=== PATIENT | female | born 1980 | race Caucasian/White ===

== ENCOUNTER 2021-02-01 08:59 | Outpatient (REF) | payer OTHER, SELFPAY ==
--- NOTE | ~2021-02-01 | FL_ITS ---
EXAMINATION: XR GI SERIES CLINICAL INFORMATION: Gastroesophageal reflux disease without esophagitis. COMPARISON: None TECHNIQUE: Routine upper GI air-contrast study was performed in upright and lying position. FINDINGS: Following oral administration of thick barium and effervescent granules upright view there is normal propagation bolus from the oral cavity through the pharynx, esophagus into stomach without any evidence of obstruction, narrowing or stricture. On placing patient supine and prone lying there is mild gastroesophageal reflux with a small sliding hiatal hernia. The course, caliber and peristalsis of the stomach, duodenal bulb and the sweep is normal. The mucosal pattern of esophagus, stomach and the duodenum is normal. FLUOROSCOPY TIME: 1.5 minutes DOSE AREA PRODUCT: 18.391 uGy-m2 (microgray-meter squared) FL/FL upper GI series IMPRESSION: Mild gastroesophageal reflux with a small sliding hiatal hernia.
== END 2021-02-01 09:00 | disposition home or self-care (01) ==
LOC: HO.XRAY 08:59
PROVIDERS: PCP Internal Medicine Nephrology; Visit Provider Internal Medicine
DX: K21.9 Gastro-esophageal reflux disease without esophagitis (principal)
CPT/HCPCS: 74240

== ENCOUNTER → 2021-04-12 15:22 | Outpatient (BNVA) | payer OTHER, SELFPAY | PROVIDERS: PCP Internal Medicine; Visit Provider Surgery Vascular Surgery ==

== ENCOUNTER 2021-05-25 10:11 | Outpatient (REF) | payer OTHER, SELFPAY ==
--- NOTE | ~2021-05-25 | US_ITS ---
EXAMINATION: US LOWER EXTREMITY VENOUS ULTRASOUND (REFLUX EXAM), BILATERAL CLINICAL INDICATION: Lower extremity varicose veins. COMPARISON: Bilateral lower extremity venous Doppler ultrasound on 02/12/2019. TECHNIQUE: Color-flow triplex imaging and compression Doppler was performed to evaluate both the deep and the superficial systems bilaterally. To evaluate the superficial system, the examination was performed in the upright position. Color-flow Doppler ultrasound and compression ultrasound were utilized. In addition, maneuvers were utilized to demonstrate reflux. FINDINGS: - SUPERFICIAL ULTRASOUND WITH DOPPLER OF RIGHT LOWER EXTREMITY GREAT SAPHENOUS VEIN: Saphenofemoral junction: 0.4 cm; Reflux: No evidence of reflux. Max diameter: 0.5 Min diameter: 0.2 Reflux: Segmental reflux at the mid calf up to 3 seconds. DUPLICATED MEDIAL GREAT SAPHENOUS VEIN: Max Diameter: 0.2 cm at the junction. Reflux: 0.4 seconds at the mid thigh. DUPLICATED LATERAL GREAT SAPHENOUS VEIN: Diameter: None imaged. Reflux: NA. SMALL SAPHENOUS VEIN: Proximal Calf: 0.4 cm Reflux: No evidence of reflux. VEIN OF GIACOMINI: None imaged. PERFORATORS: Location: Proximal calf and midcalf. Reflux: NA. VARICOSITIES: Location: None imaged. Reflux: NA. - DEEP VENOUS ULTRASOUND OF THE RIGHT LOWER EXTREMITY: Common Femoral Vein: Compressible, normal respiratory variation and augmented flow. Femoral Vein: Compressible, normal color-flow and augmentation. Popliteal Vein: Compressible, normal augmentation. Deep Reflux: There is no evidence of reflux in the deep system in either the common femoral vein or the popliteal vein. Lozada's Cyst: There is no evidence of a Lozada's cyst. - SUPERFICIAL ULTRASOUND WITH DOPPLER OF LEFT LOWER EXTREMITY GREAT SAPHENOUS VEIN: Saphenofemoral junction: 0.5 cm; Reflux: No evidence of reflux. Max diameter: 0.5 Min diameter: 0.1 Reflux: There is greater than 3 seconds of reflux at the proximal thigh and midcalf. DUPLICATED MEDIAL GREAT SAPHENOUS VEIN: Max Diameter: None imaged. Reflux: NA. DUPLICATED LATERAL GREAT SAPHENOUS VEIN: Diameter: 0.2 cm Reflux: None. SMALL SAPHENOUS VEIN: Proximal Calf: 0.3 cm Reflux: No evidence of reflux. VEIN OF GIACOMINI: None imaged. PERFORATORS: Location: None imaged. Reflux: NA. VARICOSITIES: Location: None imaged. Reflux: NA. - DEEP VENOUS ULTRASOUND OF THE LEFT LOWER EXTREMITY: Common Femoral Vein: Compressible, normal respiratory variation and augmented flow. Femoral Vein: Compressible, normal color-flow and augmentation. Popliteal Vein: Compressible, normal augmentation. Deep Reflux: There is no evidence of reflux in the deep system in either the common femoral vein or the popliteal vein. Lozada's Cyst: There is no evidence of a Lozada's cyst. US/US venous duplex LE BI IMPRESSION: 1. Segmental right great saphenous venous insufficiency at the mid calf. 2. Segmental left great saphenous venous insufficiency at the proximal thigh and midcalf. 3. No imaged varicosities. 4. No DVT or deep venous insufficiency.
== END 2021-05-25 10:12 | disposition home or self-care (01) ==
LOC: HO.US 10:11
PROVIDERS: PCP Internal Medicine; Visit Provider Surgery Vascular Surgery
DX: I83.11 Varicose veins of right lower extremity with inflammation (principal)
CPT/HCPCS: 93970

== ENCOUNTER → 2021-06-02 09:18 | Outpatient (BNVA) | payer OTHER, SELFPAY | PROVIDERS: PCP Internal Medicine; Visit Provider Surgery Vascular Surgery ==

== ENCOUNTER 2021-09-01 16:34 | Outpatient (REF) | payer OTHER, SELFPAY ==
[2021-09-01 17:04] LABS: Hematocrit 39.8 % (37.0-47.0); Hemoglobin 13.6 g/dl (12.0-16.0); Mean Corpuscular HGB Conc 34.2 g/dl (31.0-35.0); Mean Corpuscular Hemoglobin 33.7 pg (27.0-33.0); Mean Corpuscular Volume 98.8 fL (80.0-98.0); Mean Platelet Volume 10.7 fL (9.4-12.3); Platelet Count 248 X10*3/uL (160-400); Red Blood Count 4.03 X10*6/uL (4.20-5.50); Red Cell Distribution Width 12.5 % (11.0-16.0); White Blood Count 10.5 X10*3/uL (4.8-10.8)
[2021-09-01 17:22] LABS: Alanine Aminotransferase 13 U/L (0-31); Albumin Level 4.5 g/dL (3.5-5.0); Alkaline Phosphatase 50 U/L (39-117); Anion Gap 14 (12-20); Aspartate Amino Transferase 18 U/L (5-31); Bilirubin Total 0.3 mg/dL (0.0-1.0); Blood Urea Nitrogen 16 mg/dL (9-16); Carbon Dioxide 28 mmol/L (22-29); Chloride 102 mmol/L (96-108); Estimated Glomerular Filt Rate > 60; Glucose Random 125 mg/dL (60-115); Potassium 4.3 mmol/L (3.3-5.1); Sodium 140 mmol/L (135-145); Total Protein 7.2 g/dL (6.5-8.0)
[2021-09-01 17:44] LABS: TSH reflex Free T4 1.48 uIU/mL (0.32-4.0); Vitamin D 25-OH Total 38.4 ng/mL (>30)
[2021-09-01 17:55] LABS: Folate 18.4 ng/mL (> or = 4.0); Vitamin B12 373 pg/mL (200-900)
== END 2021-09-01 16:35 | disposition home or self-care (01) ==
LOC: HO.LAB 16:34
PROVIDERS: PCP Internal Medicine; Visit Provider Nurse Practitioner Family
DX: F41.9 Anxiety disorder, unspecified (principal)
CPT/HCPCS: 36415; 80053; 82306; 82607; 82746; 84443; 85027

== ENCOUNTER → 2021-09-02 08:48 | Outpatient (REF) | payer OTHER, SELFPAY ==
--- NOTE | 2021-09-02 08:55 | ECG_ITS ---
Test Reason : PALPITATIONS Blood Pressure : / mmHG Vent. Rate : 067 BPM Atrial Rate : 067 BPM P-R Int : 126 ms QRS Dur : 088 ms QT Int : 404 ms P-R-T Axes : 051 -09 043 degrees QTc Int : 426 ms Normal sinus rhythm with sinus arrhythmia Normal ECG When compared with ECG of 21-APR-2009 19:13, No significant change was found Referred By: Mitzi Bui Electronically Signed By:ALEXANDRA DURAN
== END ==
LOC: HO.CARD 08:48
PROVIDERS: PCP Internal Medicine; Visit Provider Nurse Practitioner Family
DX: R00.2 Palpitations (principal)
CPT/HCPCS: 93005

== ENCOUNTER 2022-02-01 06:59 | Outpatient (REF) | payer OTHER, SELFPAY ==
[2022-02-01 07:18] LABS: MANUAL DIFF FLAG NO
[2022-02-01 07:32] LABS: Basophils Absolute Auto 0.1 X10*3/uL (0.0-0.2); Eosinophils Absolute Auto 0.1 X10*3/uL (0.0-0.4); Hematocrit 39.9 % (37.0-47.0); Hemoglobin 14.1 g/dl (12.0-16.0); Imm Gran Abs Auto 0.02 X10*3/uL (0.00-0.03); Imm Gran Pct Auto 0.3 % (0.0-0.4); Lymphocytes Absolute Auto 1.5 X10*3/uL (1.2-4.9); Lymphocytes Percent Auto 25.2 % (20-40); Mean Corpuscular HGB Conc 35.3 g/dl (31.0-35.0); Mean Corpuscular Hemoglobin 34.5 pg (27.0-33.0); Mean Corpuscular Volume 97.6 fL (80.0-98.0); Mean Platelet Volume 10.3 fL (9.4-12.3); Monocytes Absolute Auto 0.6 X10*3/uL (0.1-1.2); Monocytes Percent Auto 9.6 % (2-11); Neutrophils Absolute Auto 3.7 x10*3/uL (2.0-8.3); Neutrophils Percent Auto 61.9 % (45-73); Platelet Count 230 X10*3/uL (160-400); Red Blood Count 4.09 X10*6/uL (4.20-5.50); Red Cell Distribution Width 12.5 % (11.0-16.0)
[2022-02-01 07:39] LABS: Estimated Average Glucose 97 mg/dL
[2022-02-01 08:00] LABS: Alanine Aminotransferase 10 U/L (0-31); Albumin Level 4.2 g/dL (3.5-5.0); Alkaline Phosphatase 40 U/L (39-117); Anion Gap 13 (12-20); Aspartate Amino Transferase 17 U/L (5-31); Bilirubin Total 0.8 mg/dL (0.0-1.0); Blood Urea Nitrogen 14 mg/dL (9-16); Calcium 9.1 mg/dL (8.4-10.2); Carbon Dioxide 29 mmol/L (22-29); Chloride 104 mmol/L (96-108); Cholesterol 141 mg/dL; Estimated Glomerular Filt Rate > 60; Glucose Random 96 mg/dL (60-115); HDL Cholesterol 55 mg/dL; LDL Cholesterol Calculated 78 mg/dl; Potassium 4.5 mmol/L (3.3-5.1); Sodium 141 mmol/L (135-145); Total Protein 6.7 g/dL (6.5-8.0); Triglycerides 42 mg/dL
[2022-02-01 08:20] LABS: Free T4 (Free Thyroxine) 1.05 ng/dL (0.71-1.85); Thyroid Stimulating Hormone 1.85 uIU/mL (0.32-4.0)
[2022-02-01 08:27] LABS: Folate > 20.0 ng/mL (> or = 4.0); Vitamin B12 402 pg/mL (200-900)
== END 2022-02-01 07:00 | disposition home or self-care (01) ==
LOC: HO.LAB 06:59
PROVIDERS: PCP Internal Medicine; Visit Provider Internal Medicine
DX: K21.9 Gastro-esophageal reflux disease without esophagitis (principal); E78.00 Pure hypercholesterolemia, unspecified; R73.09 Other abnormal glucose
CPT/HCPCS: 36415; 80053; 80061; 82306; 82607; 82746; 83036; 84439; 84443; 85025

== ENCOUNTER 2022-07-12 12:30 | Outpatient (REF) | payer OTHER, SELFPAY ==
[2022-07-12 13:42] LABS: Blood Urea Nitrogen 18 mg/dL (9-16); Estimated Glomerular Filt Rate > 60
== END 2022-07-12 12:31 | disposition home or self-care (01) ==
LOC: HO.LAB 12:30
PROVIDERS: PCP Internal Medicine; Visit Provider Internal Medicine
DX: Z82.49 Family history of ischemic heart disease and other diseases of the circulatory system (principal)
CPT/HCPCS: 36415; 82565; 84520

== ENCOUNTER 2022-07-18 08:54 | Outpatient (REF) | payer OTHER, SELFPAY ==
--- NOTE | ~2022-07-18 | CT_ITS ---
EXAMINATION: CT ANGIOGRAM BRAIN WITH CONTRAST CLINICAL INFORMATION: Family history of ischemic heart disease COMPARISON: None. TECHNIQUE: Test bolus sequences followed by intravenous administration 75 mL of Omnipaque 350. Helical imaging was performed in the axial plane from the skull base to the skull vertex. Delayed postcontrast imaging of the head was also performed. The data was processed at the senior nuclear medicine technologist workstation for generation of MIP sequences. Angled MIPs and volume rendered reformatted images were also generated at an offline 3D workstation. This CT examination was performed using dose optimization techniques as appropriate, variously including the following: *Automated exposure control *Adjustment of mA and/or kV according to patient size (this includes techniques or standardized protocols for targeted exams where dose is matched to indication/reason for exam; i.e. extremities or head) *Use of iterative reconstruction technique DLP: 2035 mGy-cm FINDINGS: Head CT: There is no intracranial hemorrhage, extra-axial collection, mass effect, or territorial infarction. The ventricles are normal in size without hydrocephalus. No abnormal enhancement is seen. The dural venous sinuses are normally opacified. The extracranial structures are within normal limits. Head CTA: The cervical internal carotid arteries and intracranial segments appear normal. The ACAs and MCAs appear normal with symmetric collaterals. The intradural vertebral arteries and basilar artery are patent. 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 Both kettle loader are patent. No aneurysm is seen. CT/CT angio head IMPRESSION: No acute intracranial abnormality. Normal appearance of the major intracranial arteries without stenosis or aneurysm.
[2022-07-18] MEDS: iohexoL 350 MG/ML 100 ML INFUS..BTL IV (10:10)
== END 2022-07-18 08:55 | disposition home or self-care (01) ==
LOC: HO.CT 08:54
PROVIDERS: PCP Internal Medicine; Visit Provider Internal Medicine
DX: Z82.49 Family history of ischemic heart disease and other diseases of the circulatory system (principal)
CPT/HCPCS: 70496; Q9967

== ENCOUNTER 2023-02-10 07:08 | Outpatient (REF) | payer OTHER, SELFPAY ==
[2023-02-10 07:41] LABS: MANUAL DIFF FLAG NO
[2023-02-10 08:06] LABS: Basophils Percent Auto 0.6 % (0-2); Eosinophils Absolute Auto 0.2 X10*3/uL (0.0-0.4); Eosinophils Percent Auto 3.6 % (0-4); Hematocrit 39.4 % (37.0-47.0); Hemoglobin 13.7 g/dl (12.0-16.0); Imm Gran Abs Auto 0.02 X10*3/uL (0.00-0.03); Imm Gran Pct Auto 0.3 % (0.0-0.4); Lymphocytes Absolute Auto 1.5 X10*3/uL (1.2-4.9); Lymphocytes Percent Auto 24.8 % (20-40); Mean Corpuscular HGB Conc 34.8 g/dl (31.0-35.0); Mean Corpuscular Volume 94.9 fL (80.0-98.0); Mean Platelet Volume 10.2 fL (9.4-12.3); Monocytes Absolute Auto 0.6 X10*3/uL (0.1-1.2); Monocytes Percent Auto 9.6 % (2-11); Neutrophils Absolute Auto 3.8 x10*3/uL (2.0-8.3); Neutrophils Percent Auto 61.1 % (45-73); Platelet Count 250 X10*3/uL (160-400); Red Blood Count 4.15 X10*6/uL (4.20-5.50); Red Cell Distribution Width 12.3 % (11.0-16.0); White Blood Count 6.2 X10*3/uL (4.8-10.8)
[2023-02-10 08:22] LABS: Estimated Average Glucose 91 mg/dL; Hemoglobin A1c % 4.8 % (<6.0)
[2023-02-10 08:51] LABS: Alanine Aminotransferase 9 U/L (0-31); Albumin Level 4.1 g/dL (3.5-5.0); Alkaline Phosphatase 39 U/L (39-117); Anion Gap 12 (12-20); Aspartate Amino Transferase 19 U/L (5-31); Bilirubin Total 0.7 mg/dL (0.0-1.0); Blood Urea Nitrogen 18 mg/dL (9-16); Carbon Dioxide 24 mmol/L (22-29); Chloride 108 mmol/L (96-108); Cholesterol 149 mg/dL (<200); Estimated Glomerular Filt Rate > 60; Glucose Random 76 mg/dL (60-115); HDL Cholesterol 57 mg/dL (>40); LDL Cholesterol Calculated 84 mg/dL (<100); Potassium 3.9 mmol/L (3.3-5.1); Sodium 140 mmol/L (135-145); Total Protein 6.9 g/dL (6.5-8.0); Triglycerides 40 mg/dL (<150)
[2023-02-10 09:14] LABS: Free T4 (Free Thyroxine) 0.85 ng/dL (0.71-1.85); Thyroid Stimulating Hormone 1.84 uIU/mL (0.32-4.0); Vitamin D 25-OH Total 68.5 ng/mL (>30)
[2023-02-10 09:19] LABS: Folate 16.9 ng/mL (> or = 4.0); Vitamin B12 466 pg/mL (200-900)
== END 2023-02-10 07:09 | disposition home or self-care (01) ==
LOC: HO.LAB 07:08
PROVIDERS: PCP Internal Medicine; Visit Provider Internal Medicine
DX: K21.9 Gastro-esophageal reflux disease without esophagitis (principal); E78.00 Pure hypercholesterolemia, unspecified; R73.9 Hyperglycemia, unspecified; E55.9 Vitamin D deficiency, unspecified
CPT/HCPCS: 36415; 80053; 80061; 82306; 82607; 82746; 83036; 84439; 84443; 85025

== ENCOUNTER 2023-02-15 16:07 | Outpatient (AMB) | payer OTHER, SELFPAY ==
[2023-02-15 16:10] VITALS: BP 118/74; PULSE 67; O2SAT 99; BMI 23.8
--- NOTE | 2023-02-15 16:10 | MHC.PC.OV ---
Vital Signs 02/15/23 16:10 Height 5 ft 6 in Weight 147 lb 8 oz BMI 23.8 BP 118/74 Blood Pressure Location Lt brachial Position Sitting Pulse 67 Pulse Source Pulse Oximeter Pulse Oximetry (%) 99 Oxygen Delivery Method Room Air Intake Visit Reasons: PHYSICAL Allergies amoxicillin Allergy (Unknown, Verified 02/15/23 16:11) unknown codeine Allergy (Unknown, Verified 02/15/23 16:11) codeine sulfate- unknown penicillin V Allergy (Unknown, Verified 02/15/23 16:11) unknown Medication List - Last Reconciled 02/15/23 by Percy Ramirez MD flaxseed oil 1,000 mg PO DAILY ibuprofen 600 mg PO Q8H PRN lactobacillus combination no.4 (Probiotic) 3,000 mmu cells PO DAILY loratadine (Claritin) 10 mg PO DAILY xhheguerhrqc-smdx-vpmpf acid 18-400 mg-mcg (Centrum Women) 1 tab PO DAILY mv-min-vit K-crcvctya-kvzs 124 1,000 mg-50 mg-35.5 mg (Airborne Elderberry) ea PO triamcinolone acetonide 0.1% 1 appl topical BID-TID Tobacco use date assessed: 02/15/23 Dental Screening Dental Screen Date: 02/15/23 Did you have a dental visit in the last 12 months?: Yes Did you have a dental problem in the last 6 months where you did not have access to dental care?: No Was dental information given to patient?: Patient has dentist HPI PHYSICAL HPI Details 42-year-old female with GERD and generalized anxiety disorder last seen in January 2022 coming in for physical exam review of the notes in October 2022 had shoulder pain on the left diagnosis of cervical radiculopathy x-ray requested advise heating pads and meloxicam. With a history of cerebral aneurysms in the family CT scan was done revealing negative results this was July 2022 [facility] Medical History (Updated 02/15/23 @ 16:48 by Percy Ramirez MD) Annual physical exam Asthma Back pain Change in stool habits Elevated glucose Family history of cerebral aneurysm Gastroenteritis GERD (gastroesophageal reflux disease) Macrocytosis without anemia Peripheral vascular disease Ulnar neuropathy Surgical History H/O LEEP History of appendectomy [place] teeth extracted Family History (Updated 02/15/23 @ 16:51 by Percy Ramirez MD) Father Skin cancer Alcoholic Mother CAD (coronary artery disease) Maternal Grandmother CAD (coronary artery disease) Paternal Grandfather Colon cancer Brother Depression Substance abuse Maternal Grandfather CAD (coronary artery disease) Social History (Updated 02/15/23 @ 16:52 by Percy Ramirez MD) Housing: House Alcohol intake: current Patient Tobacco Use Status: Never used Tobacco e-Cigarette/Vaping Use: Never Used Second Hand Smoke Exposure: No Current occupational status: unemployed Cognitive needs: No Hearing needs: No Vision needs: Yes Questionnaire PHQ-9 Over the last 2 weeks, how often have you been bothered by any of the following problems? 1. Little interest or pleasure in doing things: not at all 2. Feeling down, depressed, or hopeless: not at all 3. Trouble falling or staying asleep, or sleeping too much: not at all 4. Feeling tired or having little energy: not at all 5. Poor appetite or overeating: not at all 6. Feeling bad about yourself - or that you are a failure or have let yourself or your family down: not at all 7. Trouble concentrating on things, such as reading the newspaper or watching television: not at all 8. Moving or speaking so slowly that other people could have noticed. Or the opposite - being so fidgety or restless that you have been moving around a lot more than usual: not at all 9. Thoughts that you would be better off or of hurting yourself in some way: not at all Total score: 0 Depression Screening Interpretation: Negative Source: Developed by Drs. Orion Manriquez, Mary Infante, Nirmal Aguilar and colleagues, with an educational stacia from [employer]. Thrive Questionnaire Date Thrive assessed: 02/15/23 I am a: Patient What is your living situation today?: I have a steady place to live Within the past 12 months, did the food you bought not last and you didn't have the money to get more?: Never true Within the past 12 months, did you worry whether your food would run out before you got money to buy more?: Never true Do you have trouble paying for medicines?: No Do you have trouble getting transportation to medical appointments?: No Do you have trouble paying your heating and electricity bill?: No Do you have trouble taking care of your child, family member or friend?: No Do you have trouble with day-to-day activities such as bathing, preparing meals, shopping, managing finances, etc.?: No Are you currently unemployed and looking for a job?: No Are you interested in more education?: No Please select the resources that you would like help with: None AUDIT C Alcohol Use Questionnaire (AUDIT-C) 1. How often do you have a drink containing alcohol?: 2-3 times a week 2. How many drinks containing alcohol do you have on a typical day when you are drinking?: 1 or 2 3. How often do you have six or more drinks on one occasion?: Never Total Score: 3 Score Reviewed/Action Taken: Yes GERARDO-7 AMB Questionnaire GERARDO-7 Date GERARDO - 7 assessed: 02/15/23 Feeling nervous, anxious, or on edge: 0 = Not at all Not being able to stop or control worryin = Not at all Worrying too much about different things: 0 = Not at all Trouble relaxin = Not at all Being so restless that it is hard to sit still: 0 = Not at all Becoming easily annoyed or irritable: 0 = Not at all Feeling afraid as if something awful might happen: 0 = Not at all Total GERARDO-7 score (0-4 normal; 5-9 mild; 10-14 moderate; 15-21 severe): 0 Source: Developed by Drs. Orion Manriquez, Mary Infante, Nirmal Aguilar and colleagues, with an educational stacia from [employer]. Review of Systems Const Denies poor appetite and Denies weakness Eyes Denies no additional complaints ENT Reports Normal hearing present, Denies dizziness, Denies nasal congestion, Denies tinnitus and Denies sore throat Card Denies chest pain, Denies syncope, Denies rapid heart rate and Denies dyspnea Resp Denies cough and Denies dyspnea GI Denies change in stool character, Reports constipation, Denies diarrhea, Denies nausea and Denies vomiting Denies urinary frequency, Denies difficulty voiding and Denies dysuria Neuro Reports Normal hearing present, Denies confusion, Denies dizziness, Denies syncope and Denies weakness Psych Denies confusion Physical exam (Primary Care) Vital Signs: Last Vital Signs Pulse 67 08/31/23 16:10 BP 118/74 02/15/23 16:10 Pulse Ox 99 02/15/23 16:10 Oxygen Delivery Method Room Air 02/15/23 16:10 BMI result Body Mass Index 23.8 Tobacco/Smoking Status: Tobacco use Status Tobacco use date assessed 02/15/23 02/15/23 16:17 Patient Tobacco Use Status Never used Tobacco 02/15/23 16:17 e-Cigarette/Vaping Use Never Used 02/15/23 16:17 PHQ-9: PHQ-9 Score PHQ-9: Total score 0 02/15/23 16:17 Depression Screening Interpretation: Negative Thrive Assessment: Date of Thrive Assessment Date Thrive assessed 02/15/23 02/15/23 16:17 Const General: No confusion Orientation/consciousness: No confusion HENMT Head: Yes normocephalic Ears: external ears normal and TM's normal bilaterally Face and sinus: Yes normal facial exam Mouth: moist mucous membranes Throat: Yes tonsils normal Eyes Conjunctivae: conjunctivae normal Pupils: Equal, round and reactive pupils present and Pupil accommodation reflex normal Direct Ophthalmoscopy: normal light reflex Neck Neck: No lymphadenopathy Thyroid: Thyroid normal Chest Chest palpation & inspection: normal inspection of the chest Resp Effort & Inspection: normal respiratory effort and no audible wheezes Auscultation: clear to auscultation bilaterally, no crackles, no wheezes and lung sounds not diminished Cardio Rate: regular rate Rhythm: regular rhythm Peripheral pulses: radial pulses present and dorsalis pedis present GI Palpation (GI): no masses Auscultation: normal bowel sounds and normoactive bowel sounds Rectal Exam - Female: deferred Skin General skin exam: no rashes or lesions noted Rashes: no rashes Neuro General: No confusion Cranial nerves: Yes Equal, round and reactive pupils present and Yes Normal hearing present Cognition (Neuro): normal cognition Gait exam (Neuro): Normal gait present Motor exam (neuro): 5/5 motor strength present throughout Deep tendon reflexes (DTR's): Right brachioradialis reflex intensity grade: 2+, Left brachioradialis reflex intensity grade: 2+, Right patellar reflex intensity grade: 2+ and Left patellar reflex intensity grade: 2+ Extrem General: No edema Assessment and Plan Assessment & Plan (1) Annual physical exam: Code(s): Z00.00 - Encounter for general adult medical examination without abnormal findings (2) Shoulder pain, left: Code(s): M25.512 - Pain in left shoulder Plan: resolved (3) GERD (gastroesophageal reflux disease): Code(s): K21.9 - Gastro-esophageal reflux disease without esophagitis Plan: Avoid the foods that causes that usually spicy foods, tomato products, juices, coffee, soda and foods that your sensitive to. After eating do not lie down, allow 3-4 hours before in lie down. And keep the head of bed above 30 degrees to avoid the acid from going up. Coding Level of Care Code Est Pt Prev Care 40-64y(62476) Diagnoses Annual physical exam Z00.00 Shoulder pain, left M25.512 GERD (gastroesophageal reflux disease) K21.9 Additional Codes PHQ-9 - 84646 - PHQ-9 Billing: Y ([id number])
== END 2023-02-15 17:07 | disposition home or self-care (01) ==
PROVIDERS: PCP Internal Medicine; Visit Provider Internal Medicine
DX: Z00.00 Encounter for general adult medical examination without abnormal findings (principal); M25.512 Pain in left shoulder; K21.9 Gastro-esophageal reflux disease without esophagitis
CPT/HCPCS: 99396

== ENCOUNTER 2023-08-28 11:18 | Outpatient (AMB) | payer OTHER, SELFPAY ==
[2023-08-28 11:24] VITALS: BP 123/83; PULSE 69; BMI 22.1
--- NOTE | 2023-08-28 11:24 | A.OFFVIS_ITS ---
Intake Vital Signs 08/28/23 11:24 Height 5 ft 6 in Weight 136 lb 10.986 oz BMI 22.1 BP 123/83 Blood Pressure Location Lt brachial Position Sitting Pulse 69 Intake Visit Reasons: Gastroesophageal reflux disease (GERD) Intake Note: Rhonda presents in the office as a new patient for GERD. CC: She states that she is having excessive burping. She states she has constipation, bloating, not so much diarrhea. Barge Master Required: No Allergies amoxicillin Allergy (Unknown, Verified 08/28/23 11:24) unknown codeine Allergy (Unknown, Verified 08/28/23 11:24) codeine sulfate- unknown penicillin V Allergy (Unknown, Verified 08/28/23 11:24) unknown Medication List - Last Reconciled 08/28/23 by Dinorah Johnston PA-C flaxseed oil 1,000 mg PO DAILY ibuprofen 600 mg PO Q8H PRN lactobacillus combination no.4 (Probiotic) 3,000 mmu cells PO DAILY loratadine (Claritin) 10 mg PO DAILY sojcxexnkumz-cjvu-ewzeg acid 18-400 mg-mcg (Centrum Women) 1 tab PO DAILY mv-min-vit I-zvssoczd-kiis 124 1,000 mg-50 mg-35.5 mg (Airborne Elderberry) ea PO tizanidine 2 mg PO Q8H PRN HPI HPI Comments History of Present Illness Details A 43 y/o female with dyspepsia- increase past 3 months Began Omeprazole not helpful, she discontinued, has not been taking any medications. Does complain of bloating-she eats healthy occ constipation No smoke , occ drink- active - No N/V/D-abdominal pain, hematemesis, hematochezia fever or chills Upper GI series 2020 reveals hiatal hernia acid reflux PFSH Medical History (Updated 08/28/23 @ 14:15 by Dinorah Johnston PA-C) Family history of cerebral aneurysm Annual physical exam Elevated glucose Back pain Gastroenteritis Macrocytosis without anemia Asthma Peripheral vascular disease GERD (gastroesophageal reflux disease) Ulnar neuropathy Change in stool habits Surgical History [place] teeth extracted History of appendectomy H/O LEEP Family History (Updated 08/28/23 @ 14:12 by Dinorah Johnston PA-C) Father Skin cancer Alcoholic Mother CAD (coronary artery disease) Maternal Grandmother CAD (coronary artery disease) Paternal Grandfather Colon cancer Bladder cancer Brother Depression Substance abuse Maternal Grandfather CAD (coronary artery disease) Brother Brain aneurysm Social History Housing: House Alcohol intake: current Patient Tobacco Use Status: Never used Tobacco e-Cigarette/Vaping Use: Never Used Second Hand Smoke Exposure: No Current occupational status: unemployed Cognitive needs: No Hearing needs: No Vision needs: Yes Review of Systems Const All systems reviewed & are unremarkable except as noted in HPI and below Card Denies chest pain and Denies dyspnea Resp Denies dyspnea GI Reports belching, Reports constipation and Reports dyspepsia Physical Exam Vital Signs: Last Vital Signs Pulse 69 08/28/23 11:24 BP 123/83 08/28/23 11:24 BMI result Body Mass Index 22.1 Const General: cooperative, healthy appearing and comfortable Orientation/consciousness: patient oriented x3 Limitations: no limitations Eyes Sclerae: sclerae normal Resp Effort & Inspection: normal respiratory effort and able to speak in complete sentences Auscultation: clear to auscultation bilaterally Cardio Rate: regular rate Rhythm: regular rhythm Heart sounds: S1 normal heart sound present and S2 normal heart sound present GI Palpation (GI): Soft to palpation and nontender Auscultation: normal bowel sounds Skin General skin exam: no rashes or lesions noted Neuro General: patient oriented x3 Extrem General: Yes full ROM Psych Appearance: grossly normal and well kempt Mental Status: mental status grossly normal Speech and movement: Normal speech and movement present and Clear speech present Affect: normal affect Attitude: cooperative Thought process: Normal thought process present Thought content: Normal thought content present Results Reviewed Results Reviewed: FL/FL upper GI series IMPRESSION: Mild gastroesophageal reflux with a small sliding hiatal hernia. Assessment & Plan Assessment & Plan (1) GERD (gastroesophageal reflux disease): Comment: Acid reflux, failed omeprazole, upper GI series 2020 shows acid reflux hiatal hernia-needs further surveillance Code(s): K21.9 - Gastro-esophageal reflux disease without esophagitis Plan: HP stool if positive will treat EGD-screening for Chaudhry's,, r/o pud, nonulcer dyspepsia, (2) Encounter for screening colonoscopy: Comment: Discussed procedures, rare risks need for escorted due to anesthesia and prep Code(s): Z12.11 - Encounter for screening for malignant neoplasm of colon Plan: Index screening colonoscopy Plan EGD/ colon MG prep Orders: Orders H pylori Ag Stool Today A04.8 - Other specified bacterial intestinal infections EGD/[place] Combo - GI Use Only Today K21.9 - Gastro-esophageal reflux disease without esophagitis, Z12.11 - Encounter for screening for malignant neoplasm of colon Medications: New polyethylene glycol 3350 (Miralax) Take as directed by mouth the day before your procedure. 238 grams PO ONCE 1 day PRN 238 grams 0RF laxative effect bisacodyl (Dulcolax (bisacodyl)) Day before procedure @ 12 noon Take 4 tablets by mouth followed by large glass of water 20 mg (4 x 5 mg) PO ONCE 1 day PRN 4 tabs 0RF colonoscopy prep Z12.11 - Encounter for screening for malignant neoplasm of colon Patient Instructions: EGD/ colon MG prep, reviewed literature given Stool for H pylori if positive will treat-continue time Encouraged to call questions or concerns Appreciate the opportunity assist in the care the patient Coding Level of Care Code New Pt Level 3 (17261) Diagnoses GERD (gastroesophageal reflux disease) K21.9 Encounter for screening colonoscopy Z12.11 Time Spent (min) 30
== END 2023-08-28 12:30 | disposition home or self-care (01) ==
PROVIDERS: PCP Internal Medicine; Visit Provider Physician Assistant
DX: K21.9 Gastro-esophageal reflux disease without esophagitis (principal); Z12.11 Encounter for screening for malignant neoplasm of colon
CPT/HCPCS: 99203

== ENCOUNTER → 2023-08-28 11:18 | Outpatient (BNVA) | payer OTHER, SELFPAY | PROVIDERS: PCP Internal Medicine; Visit Provider Physician Assistant ==

== ENCOUNTER 2023-08-29 09:41 | Outpatient (REF) | payer OTHER, SELFPAY | END 2023-08-29 09:42 | disposition home or self-care (01) | LOC: HO.LNP 09:41 | PROVIDERS: Visit Provider Physician Assistant | DX: A04.8 Other specified bacterial intestinal infections (principal) | CPT/HCPCS: 87338 ==

== ENCOUNTER 2024-02-20 09:57 | Outpatient (REF) | payer OTHER, SELFPAY ==
[2024-02-20 10:21] LABS: MANUAL DIFF FLAG NO
[2024-02-20 10:41] LABS: Basophils Percent Auto 0.8 % (0-2); Eosinophils Absolute Auto 0.1 X10*3/uL (0.0-0.4); Eosinophils Percent Auto 2.2 % (0-4); Hematocrit 36.9 % (37.0-47.0); Hemoglobin 12.9 g/dl (12.0-16.0); Imm Gran Abs Auto 0.01 X10*3/uL (0.00-0.03); Imm Gran Pct Auto 0.2 % (0.0-0.4); Lymphocytes Absolute Auto 1.7 X10*3/uL (1.2-4.9); Lymphocytes Percent Auto 34.3 % (20-40); Mean Corpuscular Volume 97.4 fL (80.0-98.0); Mean Platelet Volume 9.9 fL (9.4-12.3); Monocytes Absolute Auto 0.5 X10*3/uL (0.1-1.2); Monocytes Percent Auto 10.6 % (2-11); Neutrophils Absolute Auto 2.6 x10*3/uL (2.0-8.3); Neutrophils Percent Auto 51.9 % (45-73); Platelet Count 231 X10*3/uL (160-400); Red Blood Count 3.79 X10*6/uL (4.20-5.50); Red Cell Distribution Width 12.4 % (11.0-16.0); White Blood Count 4.9 X10*3/uL (4.8-10.8)
[2024-02-20 11:18] LABS: Alanine Aminotransferase 9 U/L (0-31); Albumin Level 4.2 g/dL (3.5-5.0); Alkaline Phosphatase 38 U/L (39-117); Anion Gap 11 (12-20); Aspartate Amino Transferase 16 U/L (5-31); Bilirubin Total 0.7 mg/dL (0.0-1.0); Blood Urea Nitrogen 15 mg/dL (9-16); Calcium 9.5 mg/dL (8.4-10.2); Carbon Dioxide 29 mmol/L (22-29); Chloride 105 mmol/L (96-108); Cholesterol 142 mg/dL (<200); Estimated Glomerular Filt Rate > 60; Glucose Random 88 mg/dL (60-115); HDL Cholesterol 58 mg/dL (>40); LDL Cholesterol Calculated 78 mg/dL (<100); Potassium 4.1 mmol/L (3.3-5.1); Sodium 141 mmol/L (135-145); Total Protein 6.8 g/dL (6.5-8.0); Triglycerides 33 mg/dL (<150)
[2024-02-20 11:34] LABS: Thyroid Stimulating Hormone 1.68 uIU/mL (0.32-4.0); Vitamin D 25-OH Total 60.1 ng/mL (>30)
[2024-02-20 14:32] LABS: Vitamin B12 424 pg/mL (200-900)
== END 2024-02-20 09:58 | disposition home or self-care (01) ==
LOC: HO.LAB 09:57
PROVIDERS: PCP Internal Medicine; Visit Provider Internal Medicine
DX: K21.9 Gastro-esophageal reflux disease without esophagitis (principal); E78.00 Pure hypercholesterolemia, unspecified
CPT/HCPCS: 36415; 80053; 80061; 82306; 82607; 82746; 84439; 84443; 85025

== ENCOUNTER 2024-02-21 10:10 | Outpatient (AMB) | payer OTHER, SELFPAY ==
--- NOTE | 2024-02-21 10:33 | A.OFFPC_ITS ---
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 Allergies amoxicillin Allergy (Unknown, Verified 02/21/24 10:34) unknown codeine Allergy (Unknown, Verified 02/21/24 10:34) codeine sulfate- unknown penicillin V Allergy (Unknown, Verified 02/21/24 10:34) unknown Medication List - Last Reconciled 02/21/24 by Percy Ramirez MD bisacodyl (Dulcolax (bisacodyl)) 20 mg (4 x 5 mg) PO ONCE PRN 1 day flaxseed oil 1,000 mg PO DAILY ibuprofen 600 mg PO Q8H PRN [IUD vaginal] lactobacillus combination no.4 (Probiotic) 3,000 mmu cells PO DAILY arouupyjagfy-itvn-jjoea acid 18-400 mg-mcg (Centrum Women) 1 tab PO DAILY polyethylene glycol 3350 (Miralax) 238 grams PO ONCE PRN 1 day Tobacco use date assessed: 02/21/24 Dental Screening Dental Screen Date: 02/21/24 Did you have a dental visit in the last 12 months?: Yes Did you have a dental problem in the last 6 months where you did not have access to dental care?: No Was dental information given to patient?: Patient has dentist HPI pe HPI Details 43-year-old female with a history of VICKY D and allergic rhinitis coming in for physical exam last seen in 02/04/2023. Patient is up-to-date with mammogram. Patient has also been seen by Gastroenterology for the reflux and have discussed with her colonoscopy. Noted urgent care visit for left shoulder/neck pain diagnosis of strain of the left trapezius muscle was given muscle relaxant and anti-inflammatory. colon test and EGD march 2024 [facility] Medical History (Updated 08/28/23 @ 14:15 by Dinorah Johnston PA-C) Family history of cerebral aneurysm Annual physical exam Elevated glucose Back pain Gastroenteritis Macrocytosis without anemia Asthma Peripheral vascular disease GERD (gastroesophageal reflux disease) Ulnar neuropathy Change in stool habits Surgical History [place] teeth extracted History of appendectomy H/O LEEP Family History (Updated 08/28/23 @ 14:12 by Dinorah Johnston PA-C) Father Skin cancer Alcoholic Mother CAD (coronary artery disease) Maternal Grandmother CAD (coronary artery disease) Paternal Grandfather Colon cancer Bladder cancer Brother Depression Substance abuse Maternal Grandfather CAD (coronary artery disease) Brother Brain aneurysm Social History (Updated 02/21/24 @ 11:01 by Percy Ramirez MD) Housing: House Alcohol intake: current Comment: 2x a week 1 drink Patient Tobacco Use Status: Never used Tobacco e-Cigarette/Vaping Use: Never Used Second Hand Smoke Exposure: No Current occupational status: unemployed Cognitive needs: No Hearing needs: No Vision needs: Yes Questionnaire PHQ-9 Over the last 2 weeks, how often have you been bothered by any of the following problems? 1. Little interest or pleasure in doing things: not at all 2. Feeling down, depressed, or hopeless: not at all 3. Trouble falling or staying asleep, or sleeping too much: not at all 4. Feeling tired or having little energy: not at all 5. Poor appetite or overeating: not at all 6. Feeling bad about yourself - or that you are a failure or have let yourself or your family down: not at all 7. Trouble concentrating on things, such as reading the newspaper or watching television: not at all 8. Moving or speaking so slowly that other people could have noticed. Or the opposite - being so fidgety or restless that you have been moving around a lot more than usual: not at all 9. Thoughts that you would be better off or of hurting yourself in some way: not at all Total score: 0 Depression Screening Interpretation: Negative Depression Screening Done: Yes 94298 - PHQ-9 Billing: Yes Source: Developed by Drs. Orion Manriquez, Mary Infante, Nirmal Aguilar and colleagues, with an educational stacia from [employer]. Thrive Questionnaire Date Thrive assessed: 02/21/24 I am a: Patient What is your living situation today?: I have a steady place to live Within the past 12 months, did the food you bought not last and you didn't have the money to get more?: Never true Within the past 12 months, did you worry whether your food would run out before you got money to buy more?: Never true Do you have trouble paying for medicines?: No Do you have trouble getting transportation to medical appointments?: No Do you have trouble paying your heating and electricity bill?: No Do you have trouble taking care of your child, family member or friend?: No Do you have trouble with day-to-day activities such as bathing, preparing meals, shopping, managing finances, etc.?: No Are you currently unemployed and looking for a job?: No Are you interested in more education?: No Please select the resources that you would like help with: None Currently or been in a relationship where the following occur: No concerns reported THRIVE Score: 0 AUDIT C Alcohol Use Questionnaire (AUDIT-C) 1. How often do you have a drink containing alcohol?: 2-4 times a month 2. How many drinks containing alcohol do you have on a typical day when you are drinking?: 1 or 2 3. How often do you have six or more drinks on one occasion?: Never Total Score: 2 GERARDO-7 AMB Questionnaire GERARDO-7 Date GERARDO - 7 assessed: 02/21/24 Feeling nervous, anxious, or on edge: 0 = Not at all Not being able to stop or control worryin = Not at all Worrying too much about different things: 0 = Not at all Trouble relaxin = Not at all Being so restless that it is hard to sit still: 0 = Not at all Becoming easily annoyed or irritable: 0 = Not at all Feeling afraid as if something awful might happen: 0 = Not at all Total GERARDO-7 score (0-4 normal; 5-9 mild; 10-14 moderate; 15-21 severe): 0 Source: Developed by Drs. Orion Manriquez, Mary Infante, Nirmal Aguilar and colleagues, with an educational stacia from [employer]. GERARDO-7 Assessment Billing GERARDO-7 Assessment Tool: GERARDO-7 Assessment 03243 Review of Systems Const Denies poor appetite and Denies weakness Eyes Denies no additional complaints ENT Reports Normal hearing present, Denies dizziness, Denies nasal congestion, Denies tinnitus and Denies sore throat Card Denies chest pain, Denies syncope, Denies rapid heart rate and Denies dyspnea Resp Denies cough and Denies dyspnea GI Denies change in stool character, Reports constipation, Denies diarrhea, Denies nausea and Denies vomiting Denies urinary frequency, Denies difficulty voiding and Denies dysuria Neuro Reports Normal hearing present, Denies confusion, Denies dizziness, Denies syncope and Denies weakness Psych Denies confusion Physical exam (Primary Care) Vital Signs: Last Vital Signs Pulse 67 02/21/24 10:34 BP 104/68 02/21/24 10:34 Pulse Ox 98 02/21/24 10:34 Oxygen Delivery Method Room Air 02/21/24 10:34 BMI result Body Mass Index 21.5 Tobacco/Smoking Status: Tobacco use Status Tobacco use date assessed 02/21/24 02/21/24 10:34 Patient Tobacco Use Status Never used Tobacco 02/21/24 10:34 e-Cigarette/Vaping Use Never Used 02/21/24 10:34 PHQ-9: PHQ-9 Score PHQ-9: Total score 0 02/21/24 10:51 Depression Screening Interpretation: Negative Thrive Assessment: Date of Thrive Assessment Date Thrive assessed 02/21/24 02/21/24 10:34 Currently or been in a relationship where the following occur: No concerns reported Const General: No confusion Orientation/consciousness: No confusion HENMT Head: Yes normocephalic Ears: external ears normal and TM's normal bilaterally Face and sinus: Yes normal facial exam Mouth: moist mucous membranes Throat: Yes tonsils normal Eyes Conjunctivae: conjunctivae normal Pupils: Equal, round and reactive pupils present and Pupil accommodation reflex normal Direct Ophthalmoscopy: normal light reflex Neck Neck: No lymphadenopathy Thyroid: Thyroid normal Chest Chest palpation & inspection: normal inspection of the chest Resp Effort & Inspection: normal respiratory effort and no audible wheezes Auscultation: clear to auscultation bilaterally, no crackles, no wheezes and lung sounds not diminished Cardio Rate: regular rate Rhythm: regular rhythm Peripheral pulses: radial pulses present and dorsalis pedis present GI Palpation (GI): no masses Auscultation: normal bowel sounds and normoactive bowel sounds Rectal Exam - Female: deferred Skin General skin exam: no rashes or lesions noted Rashes: no rashes Neuro General: No confusion Cranial nerves: Yes Equal, round and reactive pupils present and Yes Normal hearing present Cognition (Neuro): normal cognition Gait exam (Neuro): Normal gait present Motor exam (neuro): 5/5 motor strength present throughout Deep tendon reflexes (DTR's): Right brachioradialis reflex intensity grade: 2+, Left brachioradialis reflex intensity grade: 2+, Right patellar reflex intensity grade: 2+ and Left patellar reflex intensity grade: 2+ Extrem General: No edema Assessment and Plan Assessment & Plan (1) Annual physical exam: Code(s): Z00.00 - Encounter for general adult medical examination without abnormal findings Plan: Patient is advised to eat healthy, keep well hydrated, keep active and have adequate sleep. (2) GERD (gastroesophageal reflux disease): Comment: Acid reflux, failed omeprazole, upper GI series 2020 shows acid reflux hiatal hernia-needs further surveillance Code(s): K21.9 - Gastro-esophageal reflux disease without esophagitis Plan: Avoid the foods that causes that usually spicy foods, tomato products, juices, coffee, soda and foods that your sensitive to. After eating do not lie down, allow 3-4 hours before in lie down. And keep the head of bed above 30 degrees to avoid the acid from going up. (3) Shoulder pain, left: Code(s): M25.512 - Pain in left shoulder Plan: Patient has been sent for physical therapy Coding Level of Care Code Est Pt Prev Care 40-64y(89948) Diagnoses Annual physical exam Z00.00 GERD (gastroesophageal reflux disease) K21.9 Shoulder pain, left M25.512 Additional Codes GERARDO-7 Assessment Billing - GERARDO-7 Assessment Tool: GERARDO-7 Assessment 92762 ([id number])
[2024-02-21 10:34] VITALS: BP 104/68; PULSE 67; O2SAT 98; BMI 21.5
== END 2024-02-21 11:11 | disposition home or self-care (01) ==
PROVIDERS: PCP Internal Medicine; Visit Provider Internal Medicine
DX: Z00.00 Encounter for general adult medical examination without abnormal findings (principal); K21.9 Gastro-esophageal reflux disease without esophagitis; M25.512 Pain in left shoulder
CPT/HCPCS: 99396

== ENCOUNTER 2024-08-11 13:05 | Outpatient (AMB) | payer OTHER, SELFPAY ==
--- NOTE | 2024-08-11 13:05 | A.OFFVIS_ITS ---
Intake Visit Reasons: f/u double Intake Note: Rhonda presents as a video for follow up for her DOUBLE. CC: wants to discuss the GERD and how to maintain the symptoms. Allergies amoxicillin Allergy (Unknown, Verified 08/11/24 13:05) unknown codeine Allergy (Unknown, Verified 08/11/24 13:05) Unknown penicillin V Allergy (Unknown, Verified 08/11/24 13:05) unknown HPI HPI f/u double: Details: 44 yr old f being called for f/u Reviewing results of EGD and colo she had been having reflxu changes she denies abdominal pain hardly uses nsaids no blood in stools consistent stools appetite is good she denies diarrhea or constipation she denies skin symptoms or eye sx she tried omeprazole but it made her feel bad EGD/colo 07/17/24 Endoscopy Findings: gastritis schatzki ring hiatal hernia mild esophagitis Colonoscopy Findings: ileitis internal hemorrhoids bx with active colitis and ileitis EXAM: looks well, talking easily A/P: 1/ 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 2/ REFLUX SX AND DYSPHAGIA prob from spasm of the esophagus PLAN: 1/ try pantoprazole 20 mg daily 2/ await CTe, if neg then fecal lacto, maybe capsule study PFSH Medical History Family history of cerebral aneurysm Elevated glucose Back pain Gastroenteritis Macrocytosis without anemia Asthma Peripheral vascular disease GERD (gastroesophageal reflux disease) Ulnar neuropathy Change in stool habits Surgical History (Updated 08/11/24 @ 13:06 by JUANI Sarmiento) Hx of colonoscopy History of esophagogastroduodenoscopy (EGD) [place] teeth extracted History of appendectomy H/O LEEP Family History Father Skin cancer Alcoholic Mother CAD (coronary artery disease) Maternal Grandmother CAD (coronary artery disease) Paternal Grandfather Colon cancer Bladder cancer Brother Depression Substance abuse Maternal Grandfather CAD (coronary artery disease) Brother Brain aneurysm Social History Housing: House Alcohol intake: current Alcohol intake frequency: holidays/special occasions only Comment: 2x a week 1 drink Patient Tobacco Use Status: Never used Tobacco e-Cigarette/Vaping Use: Never Used Second Hand Smoke Exposure: No Current occupational status: unemployed Cognitive needs: No Hearing needs: No Vision needs: Yes Telehealth Telehealth Telehealth Platform: Bunker Mode Location of provider rendering services: practice address Location of patient: address on file Patient Identification confirmed using: Name, : Yes Telehealth method: video Patient verbally consented to treatment: Yes Patient verbally consented to billing insurance company: Yes Patient informed of any privacy concerns related to visit: Yes Minutes spent on Phone/Video with Pt.: 12 Assessment & Plan Assessment & Plan (1) Ileitis, regional: Code(s): K50.00 - Crohn's disease of small intestine without complications Category: Medical Plan: as above Medications: New pantoprazole 20 mg PO DAILY 90 tabs 0RF Coding Level of Care Code Tele Est Pt Level 3 (24679) Diagnoses Ileitis, regional K50.00
== END 2024-08-11 14:52 | disposition home or self-care (01) ==
LOC: HO.HGI 13:05
PROVIDERS: PCP Internal Medicine; Visit Provider Internal Medicine Gastroenterology
DX: K50.00 Crohn's disease of small intestine without complications (principal)
CPT/HCPCS: 99213

== ENCOUNTER → 2024-08-11 13:05 | Outpatient (BNVA) | payer OTHER, SELFPAY | PROVIDERS: PCP Internal Medicine; Visit Provider Internal Medicine Gastroenterology ==

== ENCOUNTER 2024-09-22 08:14 | Outpatient (REF) | payer OTHER, SELFPAY ==
--- NOTE | ~2024-09-22 | CT_ITS ---
EXAMINATION: CT ABDOMEN PELVIS ENTEROGRAPHY WITHOUT IV CONTRAST HISTORY: K50.00 - Crohn's disease of small intestine without complications COMPARISON: There are no prior studies for comparison. TECHNIQUE: CT scan of the abdomen and pelvis was performed following administration of 85 mL Omnipaque 350 using standard departmental protocol. Coronal and sagittal reformatted images were generated and reviewed. The patient received low-density oral contrast material for CT enterography. This CT exam was performed with one or more of the following dose reduction techniques: automated exposure control, adjustment of the mA and/or kV according to patient size, use of iterative reconstruction technique. DLP: 321 mGy-cm FINDINGS: LOWER CHEST: The visualized lung bases are clear. There is no pleural effusion. CARDIOVASCULATURE: The heart is normal in size. There is no pericardial effusion. LIVER: The liver is normal in size and contour. No liver mass is identified. The hepatic and portal veins are patent. GALLBLADDER / BILE DUCTS: The gallbladder is unremarkable. There is no intra or extrahepatic biliary ductal dilatation. SPLEEN: The spleen is normal in size. No focal splenic lesion is identified. PANCREAS: The pancreas is unremarkable in appearance. ADRENAL GLANDS: Within normal limits. KIDNEYS/RETROPERITONEUM: No renal calculi are identified. There is no hydronephrosis. No renal masses are identified. LYMPH NODES: No abdominal or pelvic lymphadenopathy. VASCULATURE: The abdominal aorta is normal in caliber. MESENTERY/PERITONEUM: No free fluid. No masses. There is no free intraperitoneal gas. STOMACH: The stomach is unremarkable. SMALL BOWEL: The small bowel is normal in caliber. There is no abnormal wall thickening or mucosal hyperenhancement. COLON: The colon is unremarkable. APPENDIX: The appendix is surgically absent. URINARY BLADDER/PELVIC ORGANS: The urinary bladder is unremarkable. IUD is noted in the endometrial cavity of the uterus. There is a 1.3 cm enhancing mass in the uterine fundus and 0.8 cm enhancing mass in the left aspect of the uterine body, compatible with fibroids. BONES / SOFT TISSUES: No suspicious bony or soft tissue abnormalities. CT/CT enterography IMPRESSION: Fibroid uterus. Unremarkable CT enterography. Electronically signed by: Orion Devine MD 09/24/2024 08:54 AM EDT
--- OUTSIDE RECORDS SUMMARY | 2024-09-22 08:33 | XMS_ITS | Data Portability ---
Author Organization [place] [facility] Address [address] [place] [address] Care Team Providers Care Lead Tank Mechanic Name Role Phone CINTHIAYRIS Primary Care Provider Assessment Encounter Date Assessment Date Assessment LastModified by Organization Details LastModified Time 10/17/2022 10/17/2022 Time On Scene with Patient: 00:29:08 Brief Overview: 42 y/o female c/o left posterior shoulder pain x 4-5 days. pain is worse with certain movements and to touch. she denies any injury or skin rash. no cp, sob, dizziness, weakness. pain feels better with application of heat and gentle stretching. no abdominal pain, nausea or vomiting. Vital Signs: BP 120/80, HR 83, RR 18, T 97.2, O2 98% RA Exam: 42 y/o female well appearing, alert NAD sitting at her kitchen island. mouth: oist mucous membranes no erythema, uvula is midline. no cervical lymphadenopathy. lungs: CTAB no wheezes rales or rhonchi. heart: RRR no murmur rubs or gallops. no peripheral edema. strength is normal and equal bilaterally. skin: warm and dry no rashes or lesions. spine: c spine: normal ROM, no midline tenderness. tenderness on palpation left paraspinous muscles. left shoulder: normal appearance. tenderness on palpation trapezoid and deltoid. ROM limited due to pain. pain is reproducible with palpation and abduction, adduction and extension. DDx considered, with rationale: ACS: considered but vitals are stable, pain reproducible with palpation and certain movements. Shoulder dislocation: considered but no reported hx of trauma. shingles: considered but no skin rash on exam. Aortic Dissection: considered but she denies tearing pain radiating into her neck or back, no sob or LOC. Results/ work up: Xray c-spine and left shoulder pending. Proper Personal Protective Equipment (PPE), including gloves, eye protection and masks were donned and doffed appropriately and all equipment cleaned using approved technique with germicidal disposable wipes prior to and after care of this patient according to [facility]'s infection prevention protocols. [email or web address] Not available 10/17/2022 18:57:01 Plan of Treatment Reminders Order Date Submit Date Provider Last Modified By Organization Details Last Modified Time Details Appointments None recorded. Lab None recorded. Referral None recorded. Procedures None recorded. Surgeries None recorded. Imaging XR, shoulder, 2 or more view - left shoulder pain no trauma 2022 023 [facility] [address], [place], [address], 3 17:02:27 XR, cervical spine, 2 or 3 view - left shoulder pain radiating into arm, pain with ROM 2022 023 [facility] [address], [place], [address], 3 09:36:51 Medication Orders meloxicam 7.[address] [facility] #[id number], [address], [place], [address], 12:15:23 Patient TargetsNo targets recorded. Patient Instructions Encounter Date Encounter Id Patient Instructions Last Modified By Organization Details Last Modified Time 10/17/2022 [id number] Thank you for yo ur visit with [facility] today. We cannot always find the exact cause of your symptoms during your initial visit. Please follow up with your primary care provider or specialist within 12-24 hours within 24-48 hours within 2-3 days to be rechecked or seek medical attention if your symptoms do not go away or get worse. If you develop any new or worsening symptoms and need after hours care, please go to nearest ER and/or call 911. If you have additional concerns or develop a change in your condition between 8am-10pm, please call [facility] at [phone] to help navigate your care. [facility]. You do not appear to have a fracture or dislocation that requires immediate surgical intervention. However, small breaks or ligament tears may not be obvious on initial examination. Given this concern, we may have placed you in a temporary splint. If an xray is indicated, we will help direct you to the best option to obtain your imaging study. We have also given you follow up directions. Please follow up with your primary care physician or specialist as directed. If you develop any new or worsening symptoms and need after hours care, please go to nearest ER and/or call 911. If you have additional concerns or develop a change in your condition between 8am-10pm, please call [facility] at [phone] to help navigate your care. [email or web address] Not available 10/17/2022 19:17:18 Reason for Referral None Reported. Results Created Date Observation Date Name Description Value Unit Range Abnormal Flag Note LastModifiedBy Organization Detail LastModifiedTime 10/19/1910/18/2022 XR, cervi westley spine , 2 or 3 view CERVIC AL SPINE 2 OR 3 VIEWS FINDIN GS: No loss of verteb ral body height . The osseou s struct ures appear intact . Interv ertebr al disc spaces are preser ronda. Soft tissue s are unrema rkable . CONCLU SWATI: No acute osseou s abnorm ality. If sympto ms contin ue to persis t, progre ss, or remain of clinic al concer n, recomm end CT or MRI based on correl ating histor y for furthe r workup . ELECTR ONICAL LY SIGNED BY SHEILA SHAW M.D. 10/19/19 9:30:1 6 AM EDT. [facility] [address] [facility] [address], [place], [address], 10/18/2022 13:00:41 10/19/1910/18/2022 shoul pantera compl ete, min 2V SHOULD ER COMPLE TE, MIN 2V, LEFT FINDIN GS: No acute fractu re or disloc ation. The osseou s struct ures appear intact . Joint spaces are preser ronda. Soft tissue s are unrema rkable . CONCLU SWATI: No acute osseou s abnorm ality. Consid er a repeat multi- view study in 1 week or sooner if sympto ms contin ue to persis t or progre ss. ELECTR ONICAL LY SIGNED BY SHEILA SHAW M.D. 10/19/19 9:30:1 6 AM EDT. CERVIC AL SPINE 2 OR 3 VIEWS Result s: No loss of verteb ral body height . The osseou s struct ures appear intact . Interv ertebr al disc spaces are preser ronda. Soft tissue s are unrema rkable . Conclu swati: No acute osseou s abnorm ality. If sympto ms contin ue to persis t, progre ss, or remain of clinic al concer n, recomm end CT or MRI based on correl ating histor y for furthe r workup . Electr onical ly signed by SHEILA SHAW M.D. 10/19/19 9:30:1 6 AM EDT. SHOULD ER COMPLE TE, MIN 2V, LEFT Result s: No acute fractu re or disloc ation. The osseou s struct ures appear intact . Joint spaces are preser ronda. Soft tissue s are unrema rkable . Conclu swati: No acute osseou s abnorm ality. Consid er a repeat multi- view study in 1 week or sooner if sympto ms contin ue to persis t or progre ss. Electr onical ly signed by SHEILA SHAW M.D. 10/19/19 9:30:1 6 AM EDT. [facility] [address] [facility] [address], [place], [address], 10/18/2022 13:02:44 Result Notes None recorded. Procedures Surgical History Date Name Laterality Status Provider Name and Address Organization Details Recorded Time Appendectomy completed KATHY Cobb, [place], [address], [place] [facility] 10/17/2022 12:00:58 Imaging Results Imaging Date Name Status LastModified by Organiz ation Details LastModified Time 10/18/2022 XR, cervical spine, 2 or 3 view completed [email or web address] [facility] [address] [facility] [address], [place], [address], 10/18/2022 13:00:41 10/18/2022 shoulder complete, min 2V completed [email or web address] [facility] [place] [address] [facility] [address], [place], [address], 10/18/2022 13:02:44 Procedure Notes None recorded. Medical Equipment None Reported. Allergies Allergen ID Allergen Name Allergen Category Reaction Reaction Severity Criticality Documentation Date Start Date Code Code System Note Provider Name and Address Organization Details Recorded Time 023395 amoxicill in medicatio n Not available Not available Not available 10/17/2022 723 RxNorm KATHY Cobb [address] [place], [address], [place] [facility] 11:58:36 [id number] Product containin g penicilli n (product) medicatio n Not available Not available Not available 10/17/2022 83933 8001 SNOMED KTAHY Cobb [address] [place], [address], [place] [facility] 3 11:58:43 729460 codeine medicatio n Not available Not available Not available 10/17/2022 2670 RxNorm KATHY Cobb [address] [place], [address], [place] [facility] 3 11:58:52 Medications Name Sig Start Date Stop Date Status Note LastModified by Organization Details LastModified Time Claritin 10 mg tablet Take 1 tablet every day by oral route. active Not Available Not Available No t Available meloxicam 7.5 mg tablet Take 1 tablet twice a day by oral route as directed for 7 days. 2022 active Not Available Not Available Not Avai lable multivitamin active Not Available Not Available Not Available [facility] active Not Available Not Availabl e Not Available Vitals Date Recorded Heart rate Oxygen saturation Oxygen saturation in Arterial blood by Pulse oximetry Body temperature Respiratory rate Systolic blood pressure Diastolic blood pressure Provider Name and Address Organization Details Last Updated DateTime 3 83 /min 98 % 98 % 97.2 [degF] 18 /min 120 mm[Hg] 80 mm[Hg] Not Available [facility] 12:00:52 Social History Question Answer Notes LastModified by Organizat ion Details LastModified Time Tobacco Smoking Status Never Smoker KATHY Cobb [address] [facility] [place], [address], [place] [facility] 10/17/2022 12:00:29 What Is Your Level Of Alcohol Consumption? Occasional [email or web address] Information not available 10/17/2022 Excessive Alcohol Or Drug Use No [email or web address] Information not available 10/17/2022 Does This Patient Have A PCP? Yes [email or web address] Information not available 10/16/2022 Has The Patient Seen Their PCP In The Past 6 Months? No [email or web address] Information not available 10/17/2022 Do You Use Any Illicit Or Recreational Drugs? No Information not available 10/17/2022 Sex: Unknown Functional Status None recorded. Mental Status None recorded. Family History Relationship Description Onset Age of this Age Resolved Age Notes LastModified by Organization Details LastModified Time Father Diabetes mellitus [email or web address] Not available 10/17 12:00:02 Mother Coronary arterioscler osis [email or web address] Not available 10/17 12:00:11 Medical History Condition Response Diabetes N Coronary Artery Disease N CHF N Parkinson's Disease N Cancer Y Dementia N Stroke N Hypothyroidism N Depression N COPD N Asthma Y High Cholesterol N Rheumatoid Arthritis N Pulmonary Embolism N Hypertension N A-fib N Osteoporosis N Kidney Disease N Gynecological HistoryNo gynecological history recorded. Obstetrics History GPAL:G 0 P 0 0 0 0 Past Encounters Encounter ID Performer Location Encounter Start Date Encounter Closed Date Diagnosis/Indication Diagnosis SNOMED-CT Code Diagnosis ICD10 Code Diagnosis Note [id number] KATHY Cobb [facility] [address] [place] [address] 10/17/2022 11:57:42 10/18/2022 11:42:46 Cervical radiculopathy 35362167 M54.12 Status of condition: {{Acute* E xacerbatio n/Acute on chronic Ch ronic Stab le Worseni ng/Progres swati Uncon trolled Cr itical: Warrants escalation to ED. Undete rmined: Unclear staging of condition. Needs further evaluation and management by PCP and/or Specialist }}. Testing/Re sults: xray c spine pending. Discussion :no heavy lifting.co ntinue use of a heating pad but do not sleep with it on.ok to take otc tylenol as directed on the package for pain. Plan, Medication Management & Follow-up recommenda tions:foll ow up with pcp in 3-5 days or sooner prn.Go to the ER with worsening symptoms cp, so, numbness, weakness, edema. Pain of le ft shoulder joint [id number] M25.512 Status of condition: {{Acute* E xacerbatio n/Acute on chronic Ch ronic Stab le Worseni ng/Progres swati Uncon trolled Cr itical: Warrants escalation to ED. Undete rmined: Unclear staging of condition. Needs further evaluation and management by PCP and/or Specialist }}. Testing/Re sults: xray left shoulder pending. Discussion :no heavy lifting.re commend use of a heating pad.start RX Meloxicam 7.5 mg take 1 tab PO bid with food x 7 days.ok to take tylenol as directed on the package for pain.order for xrays given to pt she will go to [facility] radi[facility]. Plan, Medication Management & Follow-up recommenda tions:foll ow up with pcp in 3-5 days or sooner prn.go to the ER with worsening symptoms cp, sob, weakness, numbness, increasing pain, dizziness. Health Concerns Section Related Observation LastModified by Organization Detai ls LastModified Time None Recorded Concern Status LastModified by Organization Details LastModified Time None Recorded Advance Directives Directive None Recorded Payers Encounter Date Sequence Insurance Name Policy Number Policy Potter Covered Member ID Potter Member ID Guarantor Name 10/17/[address] [place] [id number] Rhonda Gómez [id number] Rhonda Gómez Notes Date Note Type Note Provider Name and Address Organization Details Recorded Time 10/17/2022 text/html 42 y/o female new to and provider with hx of mild exercise induced asthma, melanoma, anxiety. pt reports for the past 4-5 days she has had sharp pain on and off in her left posterior shoulder. she denies any injury, cp, sob, dizziness, weakness. ROM limited as certain movements trigger pain. she denies abdominal pain, nausea, vomiting diarrhea. she has been taking ibuprofen not much relief. she states stretching and heat do seem to help. she denies numbness in the arm or hand. she denies arm swelling, skin rash. KATHY Cobb [facility] [address], [place], [address], [place] [facility] 10/17/2022 19:17:31 OBGyn Episode No OBEpisode recorded.
[2024-09-22] MEDS: iohexoL 350 MG/ML 75 ML INFUS..BTL 85 ML IV (10:02)
[2024-09-22] MEDS: Sorbitol/Mannit/Xanth Imaging 500 ML LIQUID 1500 ML PO (10:04)
== END 2024-09-22 08:15 | disposition home or self-care (01) ==
LOC: HO.CT 08:14
PROVIDERS: PCP Internal Medicine; Visit Provider Internal Medicine Gastroenterology
DX: K50.00 Crohn's disease of small intestine without complications (principal)
CPT/HCPCS: 74177; Q9967

== ENCOUNTER → 2024-09-22 08:15 | Outpatient (BNV) | payer OTHER, SELFPAY | PROVIDERS: PCP Internal Medicine; Visit Provider Radiology Diagnostic Radiology | DX: D25.9 Leiomyoma of uterus, unspecified (principal) | CPT/HCPCS: 74177 ==

== ENCOUNTER 2025-01-30 07:41 | Outpatient (AMB) | payer OTHER, SELFPAY ==
--- OUTSIDE RECORDS SUMMARY | 2025-01-30 07:44 | XMS_ITS ---
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 Shewas seen on August 22, 2024, at which time she was prescribed Clobetasol 0.05 % scalp solution (Apply5-10 drops QD-BID and massage in back of scalp) and The following treatment regimen was given: Begin the following treatment(s): Clobetasol 0.05 % scalp solution 5-10 drops QD-BID and massage in backof scalp. The patient presents for further evaluation and management.Today the patient reports: Itch Numeric Rating Scale (NRS) 4.0.The patient followed the treatment plan as directed.Interval History: Patient looking for an alternate to clobetasol. Patient still sees the patch and over all itchiness. Patient has been using [place] Shampoo and doesn???t seem to be helping. Allergies, Adverse Reactions, Alerts Substance RxNorm Reaction(s) Severity Status Start Da te codeine 1330 unspecified active Penicillins unspecified active amoxicillin Hives unspecified active 2021 Medications Medication Generic Name RxNorm Strength Strength Unit Route Dose Dose Form Frequency Date Started Date Ended Status Indication Sig betamethaso ne dipropionat e betameth asone dipropio laura 915762 0.05 % Topica l lotio n 01/29/20 25 active Appl y AM and PM scal p and mass age in ketoconazol e ketocona zole 548878 2 % Topica l shamp oo 01/29/20 25 active Appl y to damp hair lath er in and leav e for 5 felicitas nnamdi, then rins e out- use when sham pooi ng triamcinolo ne acetonide triamcin olone acetonid e 2878103 0.1 % Topica l cream BID 08/27/19 22 suspend ed Appl y to affe cted area of ecze ma twic e cruzito y for 3 week s. Call prov ider if not reso lved afte r 3 week s. Mirena levonorg estrel 674489 21 mcg/24hr (up to 8 yrs) 52 mg Intrau terine intra uteri ne devic e 08/08/19 18 active Flonase Allergy Relief fluticas one propiona te 9655816 50 mcg/actua tion Nasal spray ,susp ensio n suspend ed Claritin loratadi [place] 978894 10 mg Oral 1 table t QD active Multivitami n multivit hobbs-min -iron-FA -vit K NULL OTC oral 1 QD 08/08/19 18 active pantoprazol e pantopra zole 190430 20 mg Oral 1 table t, delay ed relea se (ente monster coate d) QD active clobetasol clobetas ol 598564 0.05 % Scalp solut ion 08/23/19 25 active Appl y 5-10 drop s QD-B ID and mass age in back of scal p Problems Problem Code Type Status Date of Diagnosis Da te of Resolution Psoriasis (disorder) 0710275(SNOM ED) Diagnosis active 01/28/2025 Neoplasm of uncertain behavior of skin (disorder) 10316602(SNO MED) Diagnosis active 08/22/2024 Hemangioma of skin and subcutaneous tissue (disorder) 813197244(SN OMED) Diagnosis active 08/22/2024 Seborrheic keratosis (disorder) 574930370(SN OMED) Diagnosis active 08/22/2024 Disorder of pigmentation (disorder) 017612322(SN OMED) Diagnosis active 08/22/2024 Melanocytic nevus of trunk (disorder) 961882595(SN OMED) Diagnosis active 08/22/2024 Benign neoplasm of skin of left lower limb (disorder) 950100577974 9109(SNOMED) Diagnosis active 08/22/2024 Psoriasis (disorder) 7123651(SNOM ED) Diagnosis active 08/22/2024 Patient encounter status (finding) 244157901(SN OMED) Diagnosis active 08/22/2024 History of malignant neoplasm of skin (situation) 863292910(SN OMED) Diagnosis active 08/22/2024 History of skin and/or subcutaneous tissue disease (situation) 810523635225 105(SNOMED) Diagnosis active 08/22/2024 History of malignant neoplasm of skin (situation) 448078147(SN OMED) Diagnosis active 07/16/2023 History of skin and/or subcutaneous tissue disease (situation) 183864872407 105(SNOMED) Diagnosis active 07/16/2023 Melanocytic nevus (disorder) 266460064(SN OMED) Diagnosis active 07/16/2023 Seborrheic keratosis (disorder) 783932742(SN OMED) Diagnosis active 07/16/2023 Hemangioma of skin and subcutaneous tissue (disorder) 342465548(SN OMED) Diagnosis active 07/16/2023 Benign neoplasm of skin of left lower limb (disorder) 406098065387 9109(SNOMED) Diagnosis active 07/16/2023 Disorder of pigmentation (disorder) 152768201(SN OMED) Diagnosis active 07/16/2023 Melanocytic nevus of skin of left ear (disorder) 740573940491 107(SNOMED) Diagnosis active 01/08/2023 History of malignant neoplasm of skin (situation) 009132474(SN OMED) Diagnosis active 01/08/2023 History of skin and/or subcutaneous tissue disease (situation) 543816227272 105(SNOMED) Diagnosis active 01/08/2023 Melanocytic nevus (disorder) 022367449(SN OMED) Diagnosis active 01/08/2023 Seborrheic keratosis (disorder) 210758640(SN OMED) Diagnosis active 01/08/2023 Disorder of pigmentation (disorder) 594498288(SN OMED) Diagnosis active 01/08/2023 Hemangioma of skin and subcutaneous tissue (disorder) 881500188(SN OMED) Diagnosis active 01/08/2023 Benign neoplasm of skin of left upper limb (disorder) 739575475323 9101(SNOMED) Diagnosis active 01/08/2023 Basal cell carcinoma of truncal skin (disorder) 428285195(SN OMED) Diagnosis active 05/23/2022 History of skin and/or subcutaneous tissue disease (situation) 762685535733 105(SNOMED) Diagnosis active 05/23/2022 Neoplasm of uncertain behavior of skin (disorder) 40762977(SNO MED) Diagnosis active 2022 Melanocytic nevus (disorder) 943919030(SN OMED) Diagnosis active 2022 Seborrheic keratosis (disorder) 834610264(SN OMED) Diagnosis active 2022 Disorder of pigmentation (disorder) 058244770(SN OMED) Diagnosis active 2022 Hemangioma of skin and subcutaneous tissue (disorder) 216406567(SN OMED) Diagnosis active 2022 Seborrheic keratosis (disorder) 602559216(SN OMED) Diagnosis active 08/26/2021 Nummular eczema (disorder) 04750709(SNO MED) Diagnosis active 08/26/2021 Neoplasm of uncertain behavior of skin (disorder) 50152272(SNO MED) Diagnosis active 08/08/2017 Asthma (disorder) 217711110(SN OMED) Problem active Basal cell carcinoma of skin (disorder) 539944193(SN OMED) Problem active History of clinical finding in subject (situation) 433286793(SN OMED) Problem active Results No data Encounters Service provided at [facility], [address] [place] [address], [address], [place], [place] [id number]. Office phonenumber is [phone]. Office fax number is [phone]. Encounter Diagnosis Location Date / Time Type Psoriasiform Dermatitis (L40 .8)Psoriasiform Dermatitis (L40.8) [facility] 01/28/2025 12:15:00 [facility] [id number] Reason For Referral I saw Rhonda Gómez in the office on January 28, 2025.Below is a summary of our visit:Psoriasiform Dermatitis: dryness and flaking of left occipital scalp.Plan: Counseling, Treatment Regimen, Medication Counseling, and Prescription.Psoriasiform Dermatitis: dryness and flaking of left occipital sc alp located on the left occipital scalp.Plan: Counseling and Intralesional Kenalog.My impression and plan was the followin.Psoriasiform DermatitisCounselingTreatment Regimen: Discontinue Regimen -Clobetasol 0.05 % scalp solution 5-10 drops QD-BID and massage in back of scalp; Initiate Treatment- Betamethasone dipropionate 0.05 % lotion: Apply AM and PM scalp and massage inKetoconazole 2 % shampoo: Apply to damp hair lather in and leave for 5 minutes, then rinse out- use when shampooing;.Medication CounselingPrescription: betamethasone dipropionate 0.05 % lotion TP; ketoconazole 2 % shampoo TP2.Psoriasiform DermatitisCounselingIntralesional Kenalog: left occipital scalp; Concentration of Kenalog Solution Injected (mg/ml) - 5.0; Kenalog Preparation - Kenalog. Procedures Procedure Date Injection of triamcinolone (procedure) 0 01/28/2025 12:00 am [place] Shave biopsy (procedure) 08/22/2024 12:0 0 am UTC Shave biopsy (procedure) 01/08/2023 12:0 0 am UTC Tumor destruction (procedure) 05/23/2022 12:00 am [place] Shave biopsy (procedure) 2022 12:0 0 am UTC Documentation of past medical history (p rocedure) Documentation of past medical history (p rocedure) Documentation of past medical history (p rocedure) Documentation of past medical history (p rocedure) Documentation of past medical history (p rocedure) Documentation of past medical history (p rocedure) Documentation of past medical history (p rocedure) Documentation of past medica l history (procedure) Appendix removal and wisdom teeth Review Of Systems Provider reviewed on Jan 28, 2025.A focused review of systems was performed including Integumentary.No Problems With Healing And No Problems With Scarring (hypertrophic Or Keloid). Assessment 1.Psoriasiform DermatitisCounselingTreatment Regimen: Discontinue Regimen - Clobetasol 0.05 % scalpsolution 5-10 drops QD-BID and massage in back of scalp; Initiate Treatment - Betamethasone dipropionate 0.05 % lotion: Apply AM and PM scalp and massage inKetoconazole 2 % shampoo: Apply to damp hair lather in and leave for 5 minutes, then rinse out- use when shampooing;.Medication CounselingPrescription: betamethasone dipropionate 0.05 % lotion TP; ketoconazole 2 % shampoo TP2.Psoriasiform DermatitisCounselingIntralesional Kenalog: left occipital scalp; Concentration of Kenalog Solution Injected (mg/ml) - 5.0; Kenalog Preparation - Kenalog. Plan of Care Future visit for 04/22/2025 - Follow up in 3 months for: Focused Visit - 15 minutes. Other Instructions: Recheck scalp psoriasis. Other Instructions: Recheck scalp psoriasis. Code Detail Instructions 294259 ketoconazole 2 % shampoo Apply t o damp hair lather in and leave for 5 minutes, then rinse out- use when shampooing 284508 betamethasone diprop ionate 0.05 % lotion Apply AM and PM scalp and massage in 802755 clobetasol 0.05 % scalp solution Apply 5-10 drops QD-BID and massage in back of scalp 493841 clobetasol 0.05 % scalp solution Apply 5-10 drops QD-BID and massage in back of scalp 1401647 triamcinolone aceton malick 0.1 % topical cream Apply to affected area of eczema twice daily for 3 weeks. Call provider if not resolved after 3 weeks. Instructions * I counseled the patient regarding the following:Skin care: Emollients, ambient sun exposure, shampoos with tar, topical steriods, selenium or zinc pyrithione can improve psoriasisiform dermatitis.Contact office if: Rash worsens, or fails to improve despite several months of treatment.I recommended the following: Topical Steroids * Begin the following treatment(s): Betamethasone dipropionate 0.05 % lotion: Apply AM and PM scalp and massage inKetoconazole 2 % shampoo: Apply to damp hair lather in and leave for 5 minutes, then rinse out- use when shampooing. Discontinue the following treatment(s): Clobetasol 0.05 % scalp solution 5-10 drops QD-BID and massage in back of scalp. * Topical Steroids Counseling: I discussed with the patient that prolonged use of topical steroids can result in the increased appearance of superficial blood vessels (telangiectasias), lightening (hypopigmentation) and thinning of the skin (atrophy). Patient understands to avoid using high potency steroids in skin folds, the groin or the face. The patient verbalized understanding of the proper useand possible adverse effects of topical steroids. All of the patient's questions and concerns were addressed. * I counseled the patient regarding the following:Skin care: Emollients, ambient sun exposure, shampoos with tar, topical steriods, selenium or zinc pyrithione can improve psoriasisiform dermatitis.Contact office if: Rash worsens, or fails to improve despite several months of treatment.I recommended the following: Topical Steroids Social History Code Activity Start Date End Date [id number] (SNOMED) Never smoker Sex female Sexual orientation Unspecified Gender identity Unspecified Vital Signs No data
--- NOTE | 2025-02-17 14:18 | MHC.OFFVIS ---
Intake Visit Reasons: [facility]SULE ENDOSCOPY - [facility] Allergies amoxicillin Allergy (Unknown, Verified 08/11/24 13:05) unknown codeine Allergy (Unknown, Verified 08/11/24 13:05) Unknown penicillin V Allergy (Unknown, Verified 08/11/24 13:05) unknown [facility] Medical History (Updated 02/04/25 @ 17:01 by Percy Ramirez MD) Family history of cerebral aneurysm Elevated glucose Back pain Gastroenteritis Macrocytosis without anemia Asthma Peripheral vascular disease GERD (gastroesophageal reflux disease) Ulnar neuropathy Change in stool habits Surgical History (Updated 08/11/24 @ 13:06 by JUANI Sarmiento) Hx of colonoscopy History of esophagogastroduodenoscopy (EGD) [place] teeth extracted History of appendectomy H/O LEEP Family History Father Skin cancer Alcoholic Mother CAD (coronary artery disease) Maternal Grandmother CAD (coronary artery disease) Paternal Grandfather Colon cancer Bladder cancer Brother Depression Substance abuse Maternal Grandfather CAD (coronary artery disease) Brother Brain aneurysm Social History Housing: House Alcohol intake: current Alcohol intake frequency: holidays/special occasions only Comment: 2x a week 1 drink Patient Tobacco Use Status: Never used Tobacco e-Cigarette/Vaping Use: Never Used Second Hand Smoke Exposure: No Current occupational status: unemployed Cognitive needs: No Hearing needs: No Vision needs: Yes Office Procedures AMB Capsule Endoscopy Procedure Notes: Capsule Endoscopy: Date of Service:01/30/25 Indication: crohns disease Findings: Esophagus looked normal, Stomach with patchy erythema , duodenum entered at 41 mins. Good views of duodenum with some patchy mild erythema noted in the distal small bowel, cecum entered at 5 hr 9 min Conclusion: gastritis mild non specific enteritis I called patient -she has minimal sx at this time, will get stool lactoferrin, if elevated can consider treatment, otherwise cont to monitor clinically. also she is staying away from nsaids. Capsule Endoscopy CPT Code: 20947 - Capsule Endoscopy Assessment & Plan Assessment & Plan (1) Ileitis, regional: Code(s): K50.00 - Crohn's disease of small intestine without complications Category: Medical Plan: as above Coding Level of Care Code Procedure Only Diagnoses Ileitis, regional K50.00 CPT Codes AMB Capsule Endoscopy - Caps[facility] Endoscopy CPT Code: 53010 - Capsule Endoscopy ([id number])
== END 2025-01-30 08:07 | disposition home or self-care (01) ==
LOC: HO.HGI 07:42
PROVIDERS: PCP Internal Medicine; Visit Provider Internal Medicine Gastroenterology
DX: K50.00 Crohn's disease of small intestine without complications (principal)
CPT/HCPCS: 91110

== ENCOUNTER → 2025-01-30 07:41 | Outpatient (BNVA) | payer OTHER, SELFPAY | PROVIDERS: PCP Internal Medicine; Visit Provider Internal Medicine Gastroenterology | DX: K50.00 Crohn's disease of small intestine without complications (principal) | CPT/HCPCS: 91110 ==

== ENCOUNTER 2025-02-19 08:51 | Outpatient (REF) | payer OTHER, SELFPAY ==
[2025-02-19 09:14] LABS: MANUAL DIFF FLAG NO
--- OUTSIDE RECORDS SUMMARY | 2025-02-19 09:22 | XMS_ITS ---
[facility] Name [facility] Unknown Results Test Name/Text Value Interpretation Date Range Source Lipase SerPl-cCnc 33.0 unit/L 02/09/2025 11 - 82 [facility] BUN/Creat SerPl 23.8 Above high normal 02/09/2025 12 - 20 [facility] Calcium SerPl-mCnc 9.5 mg/dL 02/09/2025 8.4 - 10.2 [facility] Creat SerPl-mCnc 0.8 mg/dL 02/09/2025 0.5 - 1 [facility] Chloride SerPl-sCnc 104.0 mmol/L 02/09/2025 98 - 1 07 [facility] Prot SerPl-mCnc 7.1 g/dL 02/09/2025 6.4 - 8.5 [facility] CO2 SerPl-sCnc 28.0 mmol/L 02/09/2025 24 - 32 [facility] Glucose SerPl-mCnc 91.0 mg/dL 02/09/2025 70 - 199 [facility] Bilirub SerPl-mCnc 0.5 mg/dL 02/09/2025 0.3 - 1 [facility] eGFRcr SerPlBld CKD-EPI 2020 92.0 mL/min/1.73m2 02/09/2025 - [facility] Sodium SerPl-sCnc 138.0 mmol/L 02/09/2025 135 - 14 5 [facility] Anion Gap SerPl Calc-sCnc 6.0 02/09/2025 5 - 14 [facility] Potassium SerPl-sCnc 4.2 mmol/L 02/09/2025 3.5 - 5.1 [facility] ALP SerPl-cCnc 37.0 unit/L 02/09/2025 34 - 104 [facility] Albumin SerPl-mCnc 4.4 g/dL 02/09/2025 3.5 - 5 [facility] ALT SerPl-cCnc 9.0 unit/L 02/09/2025 7 - 52 [facility] AST SerPl-cCnc 16.0 unit/L 02/09/2025 5 - 40 [facility] BUN SerPl-mCnc 19.0 mg/dL Above high normal 02/09/2025 7 - 1 7 [facility] RBC # Bld Auto 4.08 M/mcL Below low normal 02/09/2025 4.2 - 5.4 [facility] Hgb Bld-mCnc 13.8 g/dL 02/09/2025 12.5 - 16 [facility] MCH RBC Qn Auto 33.8 pcg Above high normal 02/09/2025 25 - 33 [facility] Monocytes NFr Bld Auto 7.2 % 02/09/2025 2 - 12 [facility] Hct VFr Bld Auto 38.9 % 02/09/2025 37 - 47 [facility] Eosinophil NFr Bld Auto 1.6 % 02/09/2025 0 - 6 [facility] PMV Bld Auto 9.6 FL 02/09/2025 7.4 - 11.4 [facility] Lymphocytes # Bld Auto 2.03 K/mcL 02/09/2025 1 - 3.2 [facility] RDW RBC Auto 12.3 % 02/09/2025 12.1 - 16.2 [facility] Monocytes # Bld Auto 0.61 K/mcL 02/09/2025 0 - 0.8 [facility] Neutrophils NFr Bld Auto 66.6 % 02/09/2025 44 - 74 [facility] Neutrophils # Bld Auto 5.65 K/mcL 02/09/2025 1.8 - 7.8 [facility] Lymphocytes NFr Bld Auto 23.9 % 02/09/2025 20 - 48 [facility] Eosinophil # Bld Auto 0.14 K/mcL 02/09/2025 0 - 0.5 [facility] MCHC RBC Auto-EntMCnc 35.5 g/dL 02/09/2025 32 - 36 [facility] WBC # Bld Auto 8.5 K/mcL 02/09/2025 4 - 10.5 [facility] Basophils # Bld Auto 0.04 K/mcL 02/09/2025 0 - 0.2 [facility] Platelet # Bld Auto 221.0 K/mcL 02/09/2025 150 - 4 50 [facility] RBC Auto 95.3 FL 02/09/2025 78 - 100 [facility] Basophils NFr Bld Auto 0.5 % 02/09/2025 0 - 2 [facility] HCG Ur Ql Negative 02/09/2025 - [facility] WBC #/area UrnS HPF 2.0 /HPF 02/09/2025 0 - 5 [facility] RBC #/area UrnS HPF 4.0 /HPF Above high normal 02/09/2025 0 - 3 [facility] Squamous #/area UrnS HPF 2.0 /HPF 02/09/2025 0 - 5 [facility] Glucose Ur Ql Negative 02/09/2025 - [facility] Leukocyte esterase Ur Ql Strip Negative 02/09/2025 - [facility] Color Ur Yellow 02/09/2025 - [facility] pH Ur 5.5 pH 02/09/2025 5 - 8 [facility] Prot Ur Strip-mCnc Negative 02/09/2025 - [facility] Clarity Ur Clear 02/09/2025 - [facility] Ketones Ur-mCnc Negative 02/09/2025 - [facility] Sp Gr Ur 1.01 02/09/2025 1.005 - 1.03 [facility] Nitrite Ur Ql Negative 02/09/2025 - [facility] Hgb Ur Ql Trace Abnormal 02/09/2025 - [facility] History of Medication Use Medication Directions Dispensed Refills Start Date End Date Stat us iopamidoL (ISOVUE-370) 370 mg iodine /mL (76 %) injection 100 mL 100 mL, intravenous, Once in imaging, Starting on 02/09/25 at 1907, For 1 dose 02/09/2025 02/09/2025 completed ketorolac (TORADOL) injection 15 mg 15 mg, intravenous, Once, On Sun02/09/25 at 1844, For 1 dose 02/09/2025 02/09/2025 completed sodium chloride 0.9 % flush 10 mL 10 mL, intravenous, Once, On Sun02/09/25 at 1908, For 1 dose 02/09/2025 02/09/2025 completed sodium chloride 0.9 % intravenous solution 50 mL 50 mL, intravenous, Once in imaging, Starting on Sun02/09/25 at 1907, For 1 dose 02/09/2025 02/09/2025 completed traMADoL (ULTRAM) 50 mg tablet Take 1 tablet (50 mg total) by mouth every 6 (six) hours if needed for severe pain for up to 3 days. Max Daily Amount: 200 mg 02/09/2025 active pantoprazole (PROTONIX) 20 mg EC tablet Take 1 tablet (20 mg total) by mouth 1 (one) time each day if needed for heartburn. Do not crush, chew, or split. active Allergies Allergen Reaction Severity Comment Documented Date Source Statu s CODEINE HIVES 02/09/2025 [facility] active PENICILLINS HIVES 02/09/2025 [facility] active Problems Problem Status Onset Date Problem Type Date of Resoluti on Source Left lower quadrant abdominal pain active EncounterDiagnosisAct [facility] Cyst of left ovary active EncounterDiagnosisAct [facility] Pelvic congestive syndrome active EncounterDiagnosisAct [facility] Encounters Encounter Type Encounter Reason Primary Diagnosis Location Date Emergency LLQ pain Left lower quadrant pain [facility] 02/09/2025 Care Team Organization Name Specialty Phone Email Start Date End Da te [facility] 02/09/2025 [facility] 02/09/2025
--- OUTSIDE RECORDS SUMMARY | 2025-02-19 09:22 | XMS_ITS | Clinical Summary ---
Author Organization [facility] Address [address] [place] [address] Phone Care Team Providers Care Behavioral Consultant Name Role Phone Percy Ramirez MD Primary Care Provider [phone] Allergies Active Allergy Reactions Criticality Noted Date Comments Codeine Hives 02/09/2025 Penicillins Hives 02/09/2025 Medications pantoprazole (PROTONIX) 20 mg EC tablet Take 1 tablet (20 mg total) by mouth 1 (one) time each day if needed for heartburn. Do not crush, chew, or split. Active traMADoL (ULTRAM) 50 mg tablet Take 1 tablet (50 mg total) by mouth every 6 (six) hours if needed for severe pain for up to 3 days. Max Daily Amount: 200 mg 12 tablet 02/09/2025 Encounters Date Type Department Care Team Description 02/09/2025 5:39 PM EDT - 02/09/2025 9:36 PM EDT Emergency [facility] Emergency [address] [place] [id number] Dylan Goodman MD Bernuy, Alyse Alvarado MD Left lower quadrant abdominal pain (Primary Dx); Cyst of left ovary; Pelvic congestive syndrome Discharge Disposition: Home or Self Care from Last 3 Months Social History Tobacco Use Types Packs/Day Years Used Date Smoking Tobacco: Never Assessed Comments Unknown Sex and Gender Information Value Date Recorded Sex Assigned at Not on file Legal Sex Female 5:23 PM EDT Gender Identity Not on file Sexual Orientation Not on file Last Filed Vital Signs Vital Sign Reading Time Taken Comments Blood Pressure 147/81 02/09/2025 9:31 PM EDT Pulse 68 02/09/2025 9:31 PM EDT Temperature 36.7 C (98.1 F) 02/09/2025 9:31 PM EDT Respiratory Rate 18 02/09/2025 9:31 PM EDT Oxygen Saturation 100% 02/09/2025 9:31 PM EDT Inhaled Oxygen Concentration - - Weight 62.6 kg (138 lb) 02/09/2025 5:38 PM EDT Height 167.6 cm (5' 6 ) 02/09/2025 5:38 PM EDT Body Mass Index 22.27 02/09/2025 5:38 PM EDT Plan of Treatment Health Maintenance Due Date Last Done Comments Breast Cancer Screening 1978 Hepatitis B Vaccines (1 of 3 - 19+ 3-dose series) 1997 Pneumococcal Vaccine: Pediatrics (0 to 5 Years) and At-Risk Patients (6 to 49 Years) (1 of 2 - PCV) 1997 Cervical Cancer Screening: P ap Smear 1999 HPV Vaccines (3 - 3-dose SCD M series) 03/04/2022 11/07/2021, 09/01/2021 DTaP,Tdap,and Td Vaccines (3 - Td or Tdap) 08/22/2023 08/21/2013, 09/10/2010 Depression Screening 06/18/2024 Colorectal Cancer Screening: Colonoscopy 02/09/2025 HIV Screening 02/09/2025 Hepatitis C Screening 02/09/2025 Social Influencers of Health Screening 02/09/2025 COVID-19 Vaccine (1 - 2023-2 5 season) 2025 Influenza Vaccine (#1) 2025 06/28/2007 HIB Vaccines Aged Out No longer eligi ble based on patient's age to complete this topic Hepatitis A Vaccines Aged Out No long er eligible based on patient's age to complete this topic IPV Vaccines Aged Out No longer eligi ble based on patient's age to complete this topic MMR Vaccines Aged Out No longer eligi ble based on patient's age to complete this topic Meningococcal ACWY Vaccine Aged Out N o longer eligible based on patient's age to complete this topic Meningococcal B Vaccine Aged Out No l onger eligible based on patient's age to complete this topic RSV Immunization Patients Under 20 months Aged Out No longer eligible b ased on patient's age to complete this topic Varicella Vaccines Aged Out No longer eligible based on patient's age to complete this topic Procedures Procedure Name Priority Date/Time Associated Diagnosis Comments CT ABDOMEN PELVIS W CONTRAST STAT 02/09/2025 7:17 PM EDT HCG QUALITATIVE, URINE STAT Add-on 02/09/2025 6:08 PM EDT LIPASE STAT Add-on 02/09/2025 6:08 PM EDT URINALYSIS MICROSCOPIC ONLY STAT 02/09/2025 6:08 PM EDT URINALYSIS WITH REFLEX MICROSCOPIC STAT 02/09/2025 6:08 PM EDT CBC WITH AUTO DIFFERENTIAL STAT 02/09/2025 6:08 PM EDT URINALYSIS WITH REFLEX MICROSCOPIC STAT 02/09/2025 6:08 PM EDT COMPREHENSIVE METABOLIC PANEL STAT 02/09/2025 6:08 PM EDT CBC AND DIFFERENTIAL STAT 02/09/2025 6:08 PM EDT from Last 3 Months Results * CT Abdomen Pelvis w Contrast (02/09/2025 7:17 PM EDT) Anatomical Region Laterality Modality Body Computed Tomogra phy 02/09/2025 7:58 PM EDT Impressions 02/09/2025 8:01 PM EDT 1. Negative for acute process in the abdomen or pelvis. 2. Hepatic steatosis and borderline hepatomegaly. 3. An IUD is seen in customary position within the uterus. There is a 1.8 cm uterine fibroid and 1.9 cm corpus luteal cyst in the left ovary, which requires no follow-up. 4. Prominent left pelvic veins, which can be seen with pelvic congestion syndrome. -------- FINAL REPORT -------- Dictated By: Madiha Rachel Dictated Date: 02/09/2025 19:58 ET Assigned Physician: Madiha Rachel Reviewed and Electronically Signed By: Madiha Rachel Signed Date: 02/09/2025 20:01 ET Workstation ID: [id number] Transcribed By: Self Edit Transcribed Date: 02/09/2025 19:58 ET Narrative 02/09/2025 8:[address] OF THE ABDOMEN AND PELVIS WITH IV CONTRAST CLINICAL HISTORY: Abdominal pain, acute, nonlocalized Diverticulitis suspected Diverticulitis, complication suspected TECHNIQUE: Serial axial images obtained. Sagittal reconstructed images obtained. Coronal reconstructed images obtained. Exam is performed with 100 mL of Isovue-300 intravenous contrast. Per PQRS, CT exam is performed using one or more of the following dose reduction techniques: Automated exposure control, adjustment of the mA and/or KV according to patient size, or use of iterative reconstruction techniques. COMPARISON: None FINDINGS: HEART: Normal sized heart. LOWER THORAX: No pleural effusion seen. No consolidation. VISUALIZED CHEST HERNADEZ: Visualized chest hernadez are unremarkable. VISCERA: Appearance is unremarkable. VASCULATURE: Prominent left pelvic veins, which can be seen with pelvic congestion syndrome. ESOPHAGUS: Visualized portions of the esophagus are unremarkable. STOMACH: Appearance is unremarkable. PANCREAS: Appearance is unremarkable. GALLBLADDER: Appearance is unremarkable. LIVER: Hepatic steatosis with focal fatty infiltration along the falciform ligament also noted. Borderline enlarged liver measuring up to 18.8 cm in the craniocaudal dimension. ADRENALS: Appearance is unremarkable. SPLEEN: Appearance is unremarkable. KIDNEYS: Appearance is unremarkable. BLADDER: Appearance is unremarkable. GENITAL: An IUD is seen in customary position within the uterus. There is a 1.8 cm fundal uterine fibroid and 1.9 cm corpus luteal cyst in the left ovary. SMALL BOWEL: Appearance is unremarkable. Negative for small bowel dilatation. APPENDIX: Status post appendectomy. COLON: Appearance is unremarkable. ABDOMINAL/PELVIC HERNADEZ: Small fat-containing umbilical hernia. Small fat- containing umbilical hernia. BONES: Appearance is unremarkable. Procedure Note Madiha Rachel MD - 02/09/2025 CT OF THE ABDOMEN AND PELVIS WITH IV CONTRAST CLINICAL HISTORY: Abdominal pain, acute, nonlocalized Diverticulitis suspected Diverticulitis, complication suspected TECHNIQUE: Serial axial images obtained. Sagittal reconstructed images obtained. Coronal reconstructed images obtained. Exam is performed with 100 mL of Isovue-300 intravenous contrast. Per PQRS, CT exam is performed using one or more of the following dosereduction techniques: Automated exposure control, adjustment of the mAand/or KV according to patient size, or use of iterative reconstructiontechniques. COMPARISON: None FINDINGS: HEART: Normal sized heart. LOWER THORAX: No pleural effusion seen. No consolidation. VISUALIZED CHEST HERNADEZ: Visualized chest hernadez are unremarkable. VISCERA: Appearance is unremarkable. VASCULATURE: Prominent left pelvic veins, which can be seen with pelviccongestion syndrome. ESOPHAGUS: Visualized portions of the esophagus are unremarkable. STOMACH: Appearance is unremarkable. PANCREAS: Appearance is unremarkable. GALLBLADDER: Appearance is unremarkable. LIVER: Hepatic steatosis with focal fatty infiltration along the falciformligament also noted. Borderline enlarged liver measuring up to 18.8 cm inthe craniocaudal dimension. ADRENALS: Appearance is unremarkable. SPLEEN: Appearance is unremarkable. KIDNEYS: Appearance is unremarkable. BLADDER: Appearance is unremarkable. GENITAL: An IUD is seen in customary position within the uterus. There karena 1.8 cm fundal uterine fibroid and 1.9 cm corpus luteal cyst in the leftovary. SMALL BOWEL: Appearance is unremarkable. Negative for small boweldilatation. APPENDIX: Status post appendectomy. COLON: Appearance is unremarkable. ABDOMINAL/PELVIC HERNADEZ: Small fat-containing umbilical hernia. Smallfat- containing umbilical hernia. BONES: Appearance is unremarkable. IMPRESSION: 1. Negative for acute process in the abdomen or pelvis. 2. Hepatic steatosis and borderline hepatomegaly. 3. An IUD is seen in customary position within the uterus. There is a1.8 cm uterine fibroid and 1.9 cm corpus luteal cyst in the left ovary,which requires no follow-up. 4. Prominent left pelvic veins, which can be seen with pelvic congestionsyndrome. -------- FINAL REPORT -------- Dictated By: Madiha Rachel Dictated Date: 02/09/2025 19:58 ET Assigned Physician: Madiha Rachel Reviewed and Electronically Signed By: Madiha Rachel Signed Date: 02/09/2025 20:01 ET Workstation ID: [id number] Transcribed By: Self Edit Transcribed Date: 02/09/2025 19:58 ET us Dylan Goodman MD IMG CT PROCEDURES Final Res ult * (ABNORMAL) Urinalysis microscopic only (02/09/2025 6:08 PM EDT) RBC, Urine 4(H) 0 - 3 /HPF 02/09/2025 6:15 PM EDT [facility] WBC, Urine 2 0 - 5 /HPF 02/09/2025 6:15 PM EDT [facility] Squamous Epithelial, Urine 2 0 - 5 /HPF 02/09/2025 6:15 PM EDT [facility] Urine Urine specimen obtained by clean catch procedure / Unknown Non-blood Collection / Unknown 02/09/2025 6:08 PM EDT 02/09/2025 6:12 PM EDT us Dylan Goodman MD LAB URINE ORDERABLES Final Result [facility] [address] [place] [address], [place] [phone] * (ABNORMAL) Urinalysis with reflex microscopic (02/09/2025 6:08 PM EDT) Color, Urine Yellow Colorless, Yellow LAB URINALYSIS - AUTOMATED METHOD 02/09/2025 6:14 PM EDT [facility] Clarity, Urine Clear Clear LAB URINALYSIS - AUTOMATED METHOD 02/09/2025 6:14 PM EDT [facility] Specific [place] Urine 1.010 1.005 - 1.030 LAB URINALYSIS - AUTOMATED METHOD 02/09/2025 6:14 PM EDT [facility] pH, Urine 5.5 5.0 - 8.0 pH LAB URINALYSIS - AUTOMATED METHOD 02/09/2025 6:14 PM EDT [facility] Leukocytes, Urine Negative Negative WBCs/mcL LAB URINALYSIS - AUTOMATED METHOD 02/09/2025 6:14 PM EDT [facility] Nitrite, Urine Negative Negative LAB URINALYSIS - AUTOMATED METHOD 02/09/2025 6:14 PM EDT [facility] Protein, Urine Negative Negative mg/dL LAB URINALYSIS - AUTOMATED METHOD 02/09/2025 6:14 PM EDT [facility] Glucose, Urine Negative Negative mg/dL LAB URINALYSIS - AUTOMATED METHOD 02/09/2025 6:14 PM EDT [facility] Ketones, Urine Negative Negative mg/dL LAB URINALYSIS - AUTOMATED METHOD 02/09/2025 6:14 PM EDT [facility] Blood, Urine Trace(A) Negative mg/dL LAB URINALYSIS - AUTOMATED METHOD 02/09/2025 6:14 PM EDT [facility] Urine Urine specimen obtained by clean catch procedure / Unknown Non-blood Collection / Unknown 02/09/2025 6:08 PM EDT 02/09/2025 6:12 PM EDT us Dylan Goodman MD LAB URINE ORDERABLES Final Result Performing Organization Address City/State/[facility] Co de Phone Number [facility] [address] [place] [address], [place] [phone] * (ABNORMAL) CBC auto differential (02/09/2025 6:08 PM EDT) WBC 8.5 4.0 - 10.5 K/mcL LAB HEMETOLOGY METHOD 02/09/2025 6:14 PM EDT [facility] RBC 4.08(L) 4.20 - 5.40 M/mcL LAB HEMETOLOGY [facility] Hemoglobin 13.8 12.5 - 16.0 g/dL LAB HEMETOLOGY METHOD [facility]2025 [facility] Hematocrit 38.9 37.0 - 47.0 % LAB HEMETOLOGY METHOD 02/09[facility]2025 [facility] MCV 95.3 78.0 - 100.0 FL LAB HEMETOLOGY METHOD 02/09[facility]2025 6[facility] MCH 33.8(H) 25.0 - 33.0 pcg LAB HEMETOLOGY METHOD 02/09/2025 6:14 PM [facility] MCHC 35.5 32.0 - 36.0 g/dL LAB HEMETOLOGY METHOD 02/09/2025 6:14 PM [facility] RDW 12.3 12.1 - 16.2 % LAB HEMETOLOGY METHOD 02/09/2025 6:14 PM [facility] Platelets 221 150 - 450 K/mcL LAB HEMETOLOGY METHOD 02/09/2025 6:14 PM [facility] MPV 9.6 7.4 - 11.4 FL LAB HEMETOLOGY METHOD 02/09/2025 6:14 PM [facility] Neutrophils Relative 66.6 44.0 - 74.0 % LAB HEMETOLOGY METHOD 02/09/2025 6:14 PM [facility] Lymphocytes Relative 23.9 20.0 - 48.0 % LAB HEMETOLOGY METHOD 02/09/2025 6:14 PM [facility] Monocytes Relative 7.2 2.0 - 12.0 % LAB HEMETOLOGY METHOD 02/09/2025 6:14 PM [facility] Eosinophils Relative 1.6 0.0 - 6.0 % LAB HEMETOLOGY METHOD 02/09/2025 6:14 PM EDT [facility] Basophils Relative 0.5 0.0 - 2.0 % LAB HEMETOLOGY METHOD 02/09/2025 6:14 PM EDT [facility] Neutrophils Absolute 5.65 1.80 - 7.80 K/mcL LAB HEMETOLOGY METHOD 02/09/2025 6:14 PM EDT [facility] Lymphocytes Absolute 2.03 1.00 - 3.20 K/mcL LAB HEMETOLOGY METHOD 02/09/2025 6:14 PM EDT [facility] Monocytes Absolute 0.61 0.00 - 0.80 K/mcL LAB HEMETOLOGY METHOD 02/09/2025 6:14 PM EDT [facility] Eosinophils Absolute 0.14 0.00 - 0.50 K/mcL LAB HEMETOLOGY METHOD 02/09/2025 6:14 PM EDT [facility] Basophils Absolute 0.04 0.00 - 0.20 K/mcL LAB HEMETOLOGY METHOD 02/09/2025 6:14 PM EDT [facility] Blood Venous blood specimen / Unknown Venipuncture / Unknown 02/09/2025 6:08 PM EDT 02/09/2025 6:12 PM EDT Dylan Goodman MD LAB BLOOD ORDERABLES Final Result [facility] [address] [place] [address], [place] [phone] * , urine (02/09/2025 6:08 PM EDT) Preg Test, Ur Negative Negative 02/09/2025 6:44 PM EDT [facility] Urine Urine specimen obtained by clean catch procedure / Unknown Non-blood Collection / Unknown 02/09/2025 6:08 PM EDT 02/09/2025 6:12 PM EDT Dylan Goodman MD LAB URINE ORDERABLES Final Result Performing Organization Address City/[facility]/ZIP Co de Phone Number [facility] [address] [place] [address], [place] [phone] * Lipase (02/09/2025 6:08 PM EDT) Lipase 33 11 - 82 unit/L LAB CHEMISTRY METHOD 02/09/2025 6:45 PM EDT [facility] Blood Venous blood specimen / Unknown Venipuncture / Unknown 02/09/2025 6:08 PM EDT 02/09/2025 6:12 PM EDT Dylan Goodman MD LAB BLOOD ORDERABLES Final Result Performing Organization Address City/[facility]/ZIP Co de Phone Number [facility] [address] [place] [address], [place] [phone] * (ABNORMAL) Comprehensive metabolic panel (02/09/2025 6:08 PM EDT) Sodium 138 135 - 145 mmol/L LAB CHEMISTRY METHOD 02/09/2025 6:32 PM EDT [facility] Potassium 4.2 3.5 - 5.1 mmol/L LAB CHEMISTRY METHOD 02/09/2025 6:32 PM EDT [facility] Chloride 104 98 - 107 mmol/L LAB CHEMISTRY METHOD 02/09/2025 6:32 PM EDT [facility] CO2 28 24 - 32 mmol/L LAB CHEMISTRY METHOD 02/09/2025 6:32 PM EDT [facility] Anion Gap 6 5 - 14 LAB CHEMISTRY METHOD 02/09/2025 6:32 PM [facility] Glucose 91 70 - 199 mg/dL LAB CHEMISTRY METHOD 02/09/2025 6:32 PM [facility] BUN 19(H) 7 - 17 mg/dL LAB CHEMISTRY METHOD 02/09/2025 6:32 PM [facility] Creatinine 0.80 0.50 - 1.00 mg/dL LAB CHEMISTRY METHOD 02/09/2025 6:32 PM [facility] eGFR 92 >=60 mL/min/1. 73m2 LAB CHEMISTRY METHOD 02/09/2025 6:32 PM [facility] Comment:Calculation based on the Chronic Kidney Disease Epidemiology Collaboration (CKD-EPI) equation refit without adjustment for race. BUN/Creatinine Ratio 23.8(H) 12.0 - 20.0 LAB CHEMISTRY METHOD 02/09/2025 6:32 PM [facility] Calcium 9.5 8.4 - 10.2 mg/dL LAB CHEMISTRY METHOD 02/09/2025 6:32 PM [facility] AST (SGOT) 16 5 - 40 unit/L LAB CHEMISTRY METHOD 02/09/2025 6:32 PM [facility] ALT (SGPT) 9 7 - 52 unit/L LAB CHEMISTRY METHOD 02/09/2025 6:32 PM [facility] Alkaline Phosphatase 37 34 - 104 unit/L LAB CHEMISTRY METHOD 02/09/2025 6:32 PM [facility] Total Protein 7.1 6.4 - 8.5 g/dL LAB CHEMISTRY METHOD 02/09/2025 6:32 PM [facility] Albumin 4.4 3.5 - 5.0 g/dL LAB CHEMISTRY METHOD 02/09/2025 6:32 PM [facility] Total Bilirubin 0.5 0.3 - 1.0 mg/dL LAB CHEMISTRY METHOD 02/09/2025 6:32 PM EDT [facility] Blood Venous blood specimen / Unknown Venipuncture / Unknown 02/09/2025 6:08 PM EDT 02/09/2025 6:12 PM EDT us Dylan Goodman MD LAB BLOOD ORDERABLES Final Result [facility] [address] [place] [address], [place] [phone] from Last 3 Months Insurance [facility] Care Teams Behavioral Consultant Relationship Specialty Start Date End Date Percy Ramirez MD [address] [place] [phone] PCP - General Internal Medicine 02/09/25
[2025-02-19 10:27] LABS: Hematocrit 39.5 % (37.0-47.0); Hemoglobin 13.7 g/dl (12.0-16.0); Imm Gran Abs Auto 0.00 X10*3/uL (0.00-0.03); Imm Gran Pct Auto 0.0 % (0.0-0.4); Lymphocytes Absolute Auto 1.7 X10*3/uL (1.2-4.9); Mean Corpuscular HGB Conc 34.7 g/dl (31.0-35.0); Mean Corpuscular Hemoglobin 33.0 pg (27.0-33.0); Mean Corpuscular Volume 95.2 fL (80.0-98.0); NRBC Abs Auto 0.000 X10*3/uL (0.0-0.012); NRBC Pct Auto 0.0 /100WBC (0.0-0.2); Platelet Count 231 X10*3/uL (160-400); Red Blood Count 4.15 X10*6/uL (4.20-5.50); White Blood Count 5.1 X10*3/uL (4.8-10.8)
[2025-02-19 11:18] LABS: Alanine Aminotransferase 15 U/L (0-31); Albumin Level 4.5 g/dL (3.5-5.0); Alkaline Phosphatase 37 U/L (39-117); Anion Gap 12 (12-20); Aspartate Amino Transferase 23 U/L (5-31); Blood Urea Nitrogen 16 mg/dL (9-16); Calcium 9.4 mg/dL (8.4-10.2); Carbon Dioxide 30 mmol/L (22-29); Chloride 103 mmol/L (96-108); Cholesterol 149 mg/dL (<200); Estimated Glomerular Filt Rate > 60; HDL Cholesterol 57 mg/dL (>40); Potassium 4.4 mmol/L (3.3-5.1); Sodium 141 mmol/L (135-145); Total Protein 6.9 g/dL (6.5-8.0); Triglycerides 41 mg/dL (<150)
[2025-02-19 11:24] LABS: Free T4 (Free Thyroxine) 1.03 ng/dL (0.71-1.85); Thyroid Stimulating Hormone 2.14 uIU/mL (0.32-4.0)
[2025-02-19 11:35] LABS: Folate 13.4 ng/mL (> or = 4.0); Vitamin B12 560 pg/mL (200-900)
[2025-02-19 11:37] LABS: Appearance Urine Clear; Glucose Urine UA Negative (Negative); PH 6.0 (5.0-9.0); Specific Gravity - Urine 1.015 (1.005-1.025)
[2025-02-20 03:53] LABS: Follicle Stimulating Hormone 8.7 mIU/mL
== END 2025-02-19 08:52 | disposition home or self-care (01) ==
LOC: HO.LAB 08:51
PROVIDERS: Visit Provider Internal Medicine
DX: K21.9 Gastro-esophageal reflux disease without esophagitis (principal); F41.1 Generalized anxiety disorder; E78.00 Pure hypercholesterolemia, unspecified; R30.0 Dysuria
CPT/HCPCS: 36415; 80053; 80061; 81003; 82306; 82607; 82672; 82746; 83001; 84146; 84439; 84443; 85025

== ENCOUNTER 2025-02-25 08:20 | Outpatient (AMB) | payer OTHER, SELFPAY ==
[2025-02-25 08:31] VITALS: BP 110/68; PULSE 71; TEMP 36.2; O2SAT 99; BMI 22.0
--- NOTE | 2025-02-25 08:31 | A.OFFPC_ITS ---
Vital Signs 02/25/25 08:31 Height 5 ft 6 in Weight 136 lb 4 oz BMI 22.0 BP 110/68 Blood Pressure Location Lt brachial Position Sitting Pulse 71 Pulse Source Pulse Oximeter Temp 97.1 F Temp Source Temporal Artery Scan Pulse Oximetry (%) 99 Oxygen Delivery Method Room Air Intake Visit Reasons: Annual P.E Allergies amoxicillin Allergy (Unknown, Verified 02/25/25 08:32) unknown codeine Allergy (Unknown, Verified 02/25/25 08:32) Unknown penicillin V Allergy (Unknown, Verified 02/25/25 08:32) unknown Medication List - Last Reconciled 02/25/25 by Percy Ramirez MD elderberry fruit mg PO flaxseed oil 1,000 mg PO DAILY [IUD vaginal] lactobacillus combination no.4 (Probiotic) 3,000 mmu cells PO DAILY hooolkfdgrdv-lger-folbz acid 18-400 mg-mcg (Centrum Women) 1 tab PO DAILY pantoprazole 20 mg PO DAILY Tobacco use date assessed: 02/25/25 Dental Screening Dental Screen Date: 02/25/25 Did you have a dental visit in the last 12 months?: Yes Did you have a dental problem in the last 6 months where you did not have access to dental care?: No Was dental information given to patient?: Patient has dentist [facility] Medical History Family history of cerebral aneurysm Elevated glucose Back pain Gastroenteritis Macrocytosis without anemia Asthma Peripheral vascular disease GERD (gastroesophageal reflux disease) Ulnar neuropathy Change in stool habits Surgical History Hx of colonoscopy History of esophagogastroduodenoscopy (EGD) [place] teeth extracted History of appendectomy H/O LEEP Family History Father Skin cancer Alcoholic Mother CAD (coronary artery disease) Maternal Grandmother CAD (coronary artery disease) Paternal Grandfather Colon cancer Bladder cancer Brother Depression Substance abuse Maternal Grandfather CAD (coronary artery disease) Brother Brain aneurysm Social History Housing: House Alcohol intake: current Alcohol intake frequency: holidays/special occasions only Comment: 2x a week 1 drink Patient Tobacco Use Status: Never used Tobacco e-Cigarette/Vaping Use: Never Used Second Hand Smoke Exposure: No Current occupational status: unemployed Cognitive needs: No Hearing needs: No Vision needs: Yes Questionnaire PHQ-9 Over the last 2 weeks, how often have you been bothered by any of the following problems? 1. Little interest or pleasure in doing things: not at all 2. Feeling down, depressed, or hopeless: not at all 3. Trouble falling or staying asleep, or sleeping too much: not at all 4. Feeling tired or having little energy: not at all 5. Poor appetite or overeating: not at all 6. Feeling bad about yourself - or that you are a failure or have let yourself or your family down: not at all 7. Trouble concentrating on things, such as reading the newspaper or watching television: not at all 8. Moving or speaking so slowly that other people could have noticed. Or the opposite - being so fidgety or restless that you have been moving around a lot more than usual: not at all 9. Thoughts that you would be better off or of hurting yourself in some way: not at all Total score: 0 Depression Screening Interpretation: Negative Depression Screening Done: Yes 54690 - PHQ-9 Billing: Yes Source: Developed by Drs. Orion Manriquez, Mary Infante, Nirmal Aguilar and colleagues, with an educational stacia from [employer]. Thrive Questionnaire Date Thrive assessed: 02/25/25 I am a: Patient What is your living situation today?: I have a steady place to live Within the past 12 months, did the food you bought not last and you didn't have the money to get more?: Never true Within the past 12 months, did you worry whether your food would run out before you got money to buy more?: Never true Do you have trouble paying for medicines?: No Do you have trouble getting transportation to medical appointments?: No Do you have trouble paying your heating and electricity bill?: No Do you have trouble taking care of your child, family member or friend?: No Do you have trouble with day-to-day activities such as bathing, preparing meals, shopping, managing finances, etc.?: No Are you currently unemployed and looking for a job?: No Are you interested in more education?: No Please select the resources that you would like help with: None Currently or been in a relationship where the following occur: No concerns reported THRIVE Score: 0 AUDIT C Alcohol Use Questionnaire (AUDIT-C) 1. How often do you have a drink containing alcohol?: 2-4 times a month 2. How many drinks containing alcohol do you have on a typical day when you are drinking?: 1 or 2 3. How often do you have six or more drinks on one occasion?: Never Total Score: 2 GERARDO-7 AMB Questionnaire GERARDO-7 Date GERARDO - 7 assessed: 02/25/25 Feeling nervous, anxious, or on edge: 1 = Several days Not being able to stop or control worryin = Not at all Worrying too much about different things: 1 = Several days Trouble relaxin = Several days Being so restless that it is hard to sit still: 1 = Several days Becoming easily annoyed or irritable: 1 = Several days Feeling afraid as if something awful might happen: 0 = Not at all Total GERARDO-7 score (0-4 normal; 5-9 mild; 10-14 moderate; 15-21 severe): 5 Source: Developed by Drs. Orion Manriquez, Mary Infante, Nirmal Aguilar and colleagues, with an educational stacia from [employer]. GERARDO-7 Assessment Billing GERARDO-7 Assessment Tool: GERARDO-7 Assessment 55779 Review of Systems Const Denies poor appetite and Denies weakness Eyes Denies no additional complaints ENT Reports Normal hearing present, Denies dizziness, Denies nasal congestion, Denies tinnitus and Denies sore throat Card Denies chest pain, Denies syncope, Denies rapid heart rate and Denies dyspnea Resp Denies cough and Denies dyspnea GI Denies change in stool character, Reports constipation, Denies diarrhea, Denies nausea and Denies vomiting Denies urinary frequency, Denies difficulty voiding and Denies dysuria Neuro Reports Normal hearing present, Denies confusion, Denies dizziness, Denies syncope and Denies weakness Psych Denies confusion Physical exam (Primary Care) Vital Signs: Last Vital Signs Temp 97.1 F 02/25/25 08:31 Pulse 71 02/25/25 08:31 BP 110/68 02/25/25 08:31 Pulse Ox 99 02/25/25 08:31 Oxygen Delivery Method Room Air 02/25/25 08:31 BMI result Body Mass Index 22.0 Tobacco/Smoking Status: Tobacco use Status Tobacco use date assessed 02/25/25 02/25/25 08:34 Patient Tobacco Use Status Never used Tobacco 02/25/25 08:34 e-Cigarette/Vaping Use Never Used 02/25/25 08:34 PHQ-9: PHQ-9 Score PHQ-9: Total score 0 02/25/25 08:48 Depression Screening Interpretation: Negative Thrive Assessment: Date of Thrive Assessment Date Thrive assessed 02/25/25 02/25/25 08:34 Currently or been in a relationship where the following occur: No concerns reported Const General: No confusion Orientation/consciousness: No confusion HENMT Head: Yes normocephalic Ears: external ears normal and TM's normal bilaterally Face and sinus: Yes normal facial exam Mouth: moist mucous membranes Throat: Yes tonsils normal Eyes Conjunctivae: conjunctivae normal Pupils: Equal, round and reactive pupils present and Pupil accommodation reflex normal Direct Ophthalmoscopy: normal light reflex Neck Neck: No lymphadenopathy Thyroid: Thyroid normal Chest Chest palpation & inspection: normal inspection of the chest Resp Effort & Inspection: normal respiratory effort and no audible wheezes Auscultation: clear to auscultation bilaterally, no crackles, no wheezes and lung sounds not diminished Cardio Rate: regular rate Rhythm: regular rhythm Peripheral pulses: radial pulses present and dorsalis pedis present GI Palpation (GI): no masses Auscultation: normal bowel sounds and normoactive bowel sounds Rectal Exam - Female: deferred Skin General skin exam: no rashes or lesions noted Rashes: no rashes Neuro General: No confusion Cranial nerves: Yes Equal, round and reactive pupils present and Yes Normal hearing present Cognition (Neuro): normal cognition Gait exam (Neuro): Normal gait present Motor exam (neuro): 5/5 motor strength present throughout Deep tendon reflexes (DTR's): Right brachioradialis reflex intensity grade: 2+, Left brachioradialis reflex intensity grade: 2+, Right patellar reflex intensity grade: 2+ and Left patellar reflex intensity grade: 2+ Extrem General: No edema Coding Level of Care Code Est Pt Prev Care 40-64y(29308) Diagnoses Annual physical exam Z00.00 Psoriasis L40.9 GERD (gastroesophageal reflux disease) K21.9 Generalized anxiety disorder F41.1 Hepatic steatosis K76.0 Umbilical hernia K42.9 Fibroid D21.9 Additional Codes GERARDO-7 Assessment Billing - GERARDO-7 Assessment Tool: GERARDO-7 Assessment 11911 ([id number]) PHQ-9 - 53986 - PHQ-9 Billing: Yes ([id number]) Assessment & Plan Assessment & Plan (1) Annual physical exam: Code(s): Z00.00 - Encounter for general adult medical examination without abnormal findings Category: Medical Plan: Patient is advised to eat healthy, keep well hydrated, keep active and have adequate sleep. (2) Psoriasis: Code(s): L40.9 - Psoriasis, unspecified Category: Medical Plan: Patient follows up with Dermatology (3) GERD (gastroesophageal reflux disease): Comment: Acid reflux, failed omeprazole, upper GI series 2020 shows acid reflux hiatal hernia-needs further surveillance Code(s): K21.9 - Gastro-esophageal reflux disease without esophagitis Category: Medical Plan: Avoid the foods that causes that usually spicy foods, tomato products, juices, coffee, soda and foods that your sensitive to. After eating do not lie down, allow 3-4 hours before in lie down. And keep the head of bed above 30 degrees to avoid the acid from going up. (4) Generalized anxiety disorder: Code(s): F41.1 - Generalized anxiety disorder Category: Medical Plan: Stable (5) Hepatic steatosis: Comment: January 2025 CT scan Code(s): K76.0 - Fatty (change of) liver, not elsewhere classified Category: Medical Plan: Low-fat diet and exercise (6) Umbilical hernia: Comment: January 2025 CT scan Code(s): K42.9 - Umbilical hernia without obstruction or gangrene Category: Medical Plan: Avoid lifting, will continue to monitor (7) Fibroid: Comment: January 2025 CT scan Code(s): D21.9 - Benign neoplasm of connective and other soft tissue, unspecified Category: Medical Plan: Patient follows up with Gynecology Plan History of Present Illness The patient is a 44-year-old female presenting for a physical examination and management of chronic conditions. The patient has a history of Gastroesophageal Reflux Disease (GERD) and is currently managing it with pantoprazole as needed, although she tries to avoid taking it frequently. She reports that her heartburn has improved and is not a weekly occurrence. The patient has been diagnosed with Generalized Anxiety Disorder, which is part of her medical history. She has a history of uveitis associated with psoriasis, which has been previously managed by dermatology. The patient was diagnosed with Pelvic Congestion Syndrome following a CT scan that revealed prominent pelvic veins. She experiences pelvic pain and has been prescribed tramadol for pain management. Hepatic steatosis was identified during a CT scan, and the patient has been advised to maintain a healthy diet and exercise regimen to manage this condition. The patient has an umbilical hernia, which is small and fat-containing, requ iring no immediate intervention but caution against heavy lifting. An ovarian cyst and a uterine fibroid were identified, with the fibroid measuring 1.9 cm. The patient is scheduled for a follow-up with gynecology to monitor these conditions. Health Maintenance - Mammogram: Last performed in October 2022, results were normal - Colonoscopy: Last performed in June 2024 - Blood work: Normal results as of February 19, 2025, including blood count, electrolytes, renal function, liver function, cholesterol, and vitamins - Urine test: Negative - Vaccinations: Flu vaccine scheduled for March - Lifestyle: Advised to maintain a low-fat diet and regular exercise Social History - Alcohol consumption: Patient reports drinking one to two glasses of wine per week, typically shared with her - Family history: Significant for heart problems and bladder cancer - Exercise: Patient is advised to maintain regular physical activity Review of Systems - General: Denies fever, chills, or weight loss - Cardiovascular: Denies chest pain, palpitations, or syncope - Respiratory: Denies dyspnea or cough - Gastrointestinal: Reports improved heartburn, denies nausea, vomiting, or blood in stools - Genitourinary: Denies dysuria, reports waking once at night to urinate - Neurological: Reports tension headaches associated with menstrual cycle, denies dizziness or fainting - Musculoskeletal: Denies joint pain or swelling Physical Exam General: Cooperative, healthy appearing, comfortable, no acute distress and well developed Orientation: Patient oriented x3 Limitations: No limitations Head: Normal to inspection Ears: Hearing grossly normal bilaterally Nose: Normal external nose present Face and sinus: Normal facial exam Eyes: Appearance normal, both eyes and all related structures Neck: Normal visual inspection and Yes full ROM Respiratory: Normal respiratory effort and able to speak in complete sentences. Clear to auscultation bilaterally Cardiovascular: Regular rate and rhythm. Normal S1 and S2 GI: Normal to inspection. Soft to palpation and nontender. Noted small umbilical hernia and hepatic steatosis. Skin: No rashes or lesions noted Neuro: Patient oriented x3 Extremities: Normal to inspection Results - Labs: Normal blood count, electrolytes, renal function, liver function, cholesterol, and vitamins as of February 19, 2025 - Imaging: CT scan revealed hepatic steatosis, umbilical hernia, ovarian cyst, and uterine fibroid - Urine: Negative results Plan Patient was informed and verbally consented to the use of an ambient scribe for clinic note documentation during this visit. 1. Gastroesophageal Reflux Disease (Gerd) The patient is advised to continue using pantoprazole as needed for GERD management, with an emphasis on lifestyle modifications such as dietary changes to reduce symptoms. 2. Generalized Anxiety Disorder The patient is encouraged to continue with current management strategies for anxiety and to seek further consultation if symptoms worsen. 3. Pelvic Congestion Syndrome Management includes pain control with tramadol and a follow-up with gynecology for further evaluation and management options. 4. Hepatic Steatosis The patient is advised to maintain a healthy diet and regular exercise to manage hepatic steatosis, with a follow-up planned with gastroenterology for further evaluation. 5. Umbilical Hernia The umbilical hernia is small and requires no immediate intervention; the patient is advised to avoid heavy lifting to prevent exacerbation. 6. Ovarian Cyst The patient is scheduled for a follow-up with gynecology to monitor the ovarian cyst and assess any changes or need for intervention. 7. Uterine Fibroid The uterine fibroid is small and currently asymptomatic; monitoring will continue with gynecological follow-up to assess for any changes. Discussion Notes During the consultation, I discussed the management of GERD with the patient, emphasizing the importance of lifestyle modifications alongside medication use. We reviewed the patient's anxiety management plan and encouraged her to continue with current strategies, seeking further consultation if necessary. The patient was informed about the findings of hepatic steatosis and advised on dietary and exercise interventions to manage the condition. We discussed the small umbilical hernia and advised against heavy lifting to prevent exacerbation. Follow-up with gynecology was recommended for monitoring the ovarian cyst and uterine fibroid. Patient Instructions - Continue using pantoprazole as needed for GERD, and focus on dietary changes to reduce symptoms. - Maintain a healthy diet and regular exercise to manage hepatic steatosis. - Avoid heavy lifting to prevent exacerbation of the umbilical hernia. - Follow up with gynecology for monitoring of ovarian cyst and uterine fibroid. - Schedule a flu vaccination in March. Orders: Orders IRON PROFILE Today K76.0 - Fatty (change of) liver, not elsewhere classified Hemoglobin A1c Today K76.0 - Fatty (change of) liver, not elsewhere classified Mitochondrial Antibody Today K76.0 - Fatty (change of) liver, not elsewhere classified Ceruloplasmin Today K76.0 - Fatty (change of) liver, not elsewhere classified Alpha 1 Anti-trypsin Today K76.0 - Fatty (change of) liver, not elsewhere classified Transglutaminase IgA Today K76.0 - Fatty (change of) liver, not elsewhere classified Immunoglobulins,IgG IgA IgM Today K76.0 - Fatty (change of) liver, not elsewhere classified Smooth Muscle Antibody Today K76.0 - Fatty (change of) liver, not elsewhere classified, R79.89 - Other specified abnormal findings of blood chemistry Ferritin Today K76.0 - Fatty (change of) liver, not elsewhere classified Reticulocyte Count Today K76.0 - Fatty (change of) liver, not elsewhere classified Celiac Diagnostic Gliadin TTG Today K76.0 - Fatty (change of) liver, not elsewhere classified Hepatitis B,C Profile Today K76.0 - Fatty (change of) liver, not elsewhere cla ssified, R79.89 - Other specified abnormal findings of blood chemistry
--- OUTSIDE RECORDS SUMMARY | 2025-02-25 09:31 | XMS_ITS | Clinical Summary ---
Author Organization [facility] Address [address] [place] [address] Phone Care Team Providers Care Leasing Coordinator Name Role Phone Percy Ramirez MD Primary Care Provider [phone] Allergies Active Allergy Reactions Criticality Noted Date [...] EDT - 02/09/2025 9:36 PM EDT Emergency [facility] Emergency [address] [place] [id number] Dylan Goodman MD Bernuy, Alyse Alvarado MD [...] Signed Date: 02/09/2025 20:01 ET Workstation ID: [id number] Transcribed By: Self Edit Transcribed Date: 02/09/2025 [...] Signed Date: 02/09/2025 20:01 ET Workstation ID: [id number] Transcribed By: Self Edit Transcribed Date: 02/09/2025 19:58 ET us Dylan Goodman MD IMG CT PROCEDURES Final Res ult * (ABNORMAL) Urinalysis microscopic only (02/09/2025 6:08 PM EDT) RBC, Urine 4(H) 0 - 3 /HPF 02/09/2025 6:15 PM EDT [facility] WBC, Urine 2 0 - 5 /HPF 02/09/2025 6:15 PM EDT [facility] Squamous Epithelial, Urine 2 0 - 5 /HPF 02/09/2025 6:15 PM EDT [facility] Urine Urine specimen obtained by clean catch procedure / Unknown Non-blood Collection / Unknown 02/09/2025 6:08 PM EDT 02/09/2025 6:12 PM EDT us Dylan Goodman MD LAB URINE ORDERABLES Final Result [facility] [address] [place] [address], [place] [phone] * (ABNORMAL) Urinalysis with reflex microscopic (02/09/2025 6:08 PM EDT) Color, Urine Yellow Colorless, Yellow LAB URINALYSIS - AUTOMATED METHOD 02/09/2025 6:14 PM EDT [facility] Clarity, Urine Clear Clear LAB URINALYSIS - AUTOMATED METHOD 02/09/2025 6:14 PM EDT [facility] Specific [place] Urine 1.010 1.005 - 1.030 LAB URINALYSIS - AUTOMATED METHOD 02/09/2025 6:14 PM EDT [facility] pH, Urine 5.5 5.0 - 8.0 pH LAB URINALYSIS - AUTOMATED METHOD 02/09/2025 6:14 PM EDT [facility] Leukocytes, Urine Negative Negative WBCs/mcL LAB URINALYSIS - AUTOMATED METHOD 02/09/2025 6:14 PM EDT [facility] Nitrite, Urine Negative Negative LAB URINALYSIS - AUTOMATED METHOD 02/09/2025 6:14 PM EDT [facility] Protein, Urine Negative Negative mg/dL LAB URINALYSIS - AUTOMATED METHOD 02/09/2025 6:14 PM EDT [facility] Glucose, Urine Negative Negative mg/dL LAB URINALYSIS - AUTOMATED METHOD 02/09/2025 6:14 PM EDT [facility] Ketones, Urine Negative Negative mg/dL LAB URINALYSIS - AUTOMATED METHOD 02/09/2025 6:14 PM EDT [facility] Blood, Urine Trace(A) Negative mg/dL LAB URINALYSIS - AUTOMATED METHOD 02/09/2025 6:14 PM EDT [facility] Urine Urine specimen obtained by clean catch procedure / Unknown Non-blood Collection / Unknown 02/09/2025 6:08 PM EDT 02/09/2025 6:12 PM EDT us Dylan Goodman MD LAB URINE ORDERABLES Final Result Performing Organization Address City/State/[facility] Co de Phone Number [facility] [address] [place] [address], [place] [phone] * (ABNORMAL) CBC auto differential (02/09/2025 6:08 PM EDT) WBC 8.5 4.0 - 10.5 K/mcL LAB HEMETOLOGY METHOD 02/09/2025 6:14 PM EDT [facility] RBC 4.08(L) 4.20 - 5.40 M/mcL LAB HEMETOLOGY METHOD [facility] Hemoglobin 13.8 12.5 - 16.0 g/dL LAB HEMETOLOGY METHOD [facility]25 [facility] Hematocrit 38.9 37.0 - 47.0 % LAB HEMETOLOGY METHOD 02/09/2025 6:[facility] MCV 95.3 78.0 - 100.0 FL LAB HEMETOLOGY METHOD 02/09[facility]2025 6[facility] MCH 33.8(H) 25.0 - 33.0 pcg LAB HEMETOLOGY METHOD 02/09/2025 6:14 PM [facility] MCHC 35.5 32.0 - 36.0 g/dL LAB HEMETOLOGY METHOD 02/09/2025 6:14 PM [facility] RDW 12.3 12.1 - 16.2 % LAB HEMETOLOGY METHOD 02/09/2025 6:14 PM [facility] Platelets 221 150 - 450 K/mcL LAB HEMETOLOGY METHOD 02/09/2025 6:14 PM [facility] MPV 9.6 7.4 - 11.4 FL LAB HEMETOLOGY METHOD 02/09/2025 6:14 PM [facility] Neutrophils Relative 66.6 44.0 - 74.0 % LAB HEMETOLOGY METHOD 02/09/2025 6:14 PM [facility] Lymphocytes Relative 23.9 20.0 - 48.0 % LAB HEMETOLOGY METHOD 02/09/2025 6:14 PM [facility] Monocytes Relative 7.2 2.0 - 12.0 % LAB HEMETOLOGY METHOD 02/09/2025 6:14 PM [facility] Eosinophils Relative 1.6 0.0 - 6.0 % LAB HEMETOLOGY METHOD 02/09/2025 6:14 PM EDT [facility] Basophils Relative 0.5 0.0 - 2.0 % LAB HEMETOLOGY METHOD 02/09/2025 6:14 PM EDT [facility] Neutrophils Absolute 5.65 1.80 - 7.80 K/mcL LAB HEMETOLOGY METHOD 02/09/2025 6:14 PM EDT [facility] Lymphocytes Absolute 2.03 1.00 - 3.20 K/mcL LAB HEMETOLOGY METHOD 02/09/2025 6:14 PM EDT [facility] Monocytes Absolute 0.61 0.00 - 0.80 K/mcL LAB HEMETOLOGY METHOD 02/09/2025 6:14 PM EDT [facility] Eosinophils Absolute 0.14 0.00 - 0.50 K/mcL LAB HEMETOLOGY METHOD 02/09/2025 6:14 PM EDT [facility] Basophils Absolute 0.04 0.00 - 0.20 K/mcL LAB HEMETOLOGY METHOD 02/09/2025 6:14 PM EDT [facility] Blood Venous blood specimen / Unknown Venipuncture / Unknown 02/09/2025 6:08 PM EDT 02/09/2025 6:12 PM EDT Dylan Goodman MD LAB BLOOD ORDERABLES Final Result [facility] [address] [place] [address], [place] [phone] * , urine (02/09/2025 6:08 PM EDT) Preg Test, Ur Negative Negative 02/09/2025 6:44 PM EDT [facility] Urine Urine specimen obtained by clean catch procedure / Unknown Non-blood Collection / Unknown 02/09/2025 6:08 PM EDT 02/09/2025 6:12 PM EDT Dylan Goodman MD LAB URINE ORDERABLES Final Result Performing Organization Address City/[facility]/ZIP Co de Phone Number [facility] [address] [place] [address], [place] [phone] * Lipase (02/09/2025 6:08 PM EDT) Lipase 33 11 - 82 unit/L LAB CHEMISTRY METHOD 02/09/2025 6:45 PM EDT [facility] Blood Venous blood specimen / Unknown Venipuncture / Unknown 02/09/2025 6:08 PM EDT 02/09/2025 6:12 PM EDT Dylan Goodman MD LAB BLOOD ORDERABLES Final Result Performing Organization Address City/[facility]/ZIP Co de Phone Number [facility] [address] [place] [address], [place] [phone] * (ABNORMAL) Comprehensive metabolic panel (02/09/2025 6:08 PM EDT) Sodium 138 135 - 145 mmol/L LAB CHEMISTRY METHOD 02/09/2025 6:32 PM EDT [facility] Potassium 4.2 3.5 - 5.1 mmol/L LAB CHEMISTRY METHOD 02/09/2025 6:32 PM EDT [facility] Chloride 104 98 - 107 mmol/L LAB CHEMISTRY METHOD 02/09/2025 6:32 PM EDT [facility] CO2 28 24 - 32 mmol/L LAB CHEMISTRY METHOD 02/09/2025 6:32 PM EDT [facility] Anion Gap 6 5 - 14 LAB CHEMISTRY METHOD 02/09/2025 6:32 PM [facility] Glucose 91 70 - 199 mg/dL LAB CHEMISTRY METHOD 02/09/2025 6:32 PM [facility] BUN 19(H) 7 - 17 mg/dL LAB CHEMISTRY METHOD 02/09/2025 6:32 PM [facility] Creatinine 0.80 0.50 - 1.00 mg/dL LAB CHEMISTRY METHOD 02/09/2025 6:32 PM [facility] eGFR 92 >=60 mL/min/1. 73m2 LAB CHEMISTRY METHOD 02/09/2025 6:32 PM [facility] Comment:Calculation based on the Chronic Kidney Disease Epidemiology Collaboration (CKD-EPI) equation refit without adjustment for race. BUN/Creatinine Ratio 23.8(H) 12.0 - 20.0 LAB CHEMISTRY METHOD 02/09/2025 6:32 PM [facility] Calcium 9.5 8.4 - 10.2 mg/dL LAB CHEMISTRY METHOD 02/09/2025 6:32 PM [facility] AST (SGOT) 16 5 - 40 unit/L LAB CHEMISTRY METHOD 02/09/2025 6:32 PM [facility] ALT (SGPT) 9 7 - 52 unit/L LAB CHEMISTRY METHOD 02/09/2025 6:32 PM [facility] Alkaline Phosphatase 37 34 - 104 unit/L LAB CHEMISTRY METHOD 02/09/2025 6:32 PM [facility] Total Protein 7.1 6.4 - 8.5 g/dL LAB CHEMISTRY METHOD 02/09/2025 6:32 PM [facility] Albumin 4.4 3.5 - 5.0 g/dL LAB CHEMISTRY METHOD 02/09/2025 6:32 PM [facility] Total Bilirubin 0.5 0.3 - 1.0 mg/dL LAB CHEMISTRY METHOD 02/09/2025 6:32 PM EDT [facility] Blood Venous blood specimen / Unknown Venipuncture / Unknown 02/09/2025 6:08 PM EDT 02/09/2025 6:12 PM EDT us Dylan Goodman MD LAB BLOOD ORDERABLES Final Result [facility] [address] [place] [address], [place] [phone] from Last 3 Months Insurance [facility] Care Teams Leasing Coordinator Relationship Specialty Start Date End Date Percy Ramirez MD [address] [place] [phone] PCP - General Internal Medicine 02/09/25
== END 2025-02-25 09:15 | disposition home or self-care (01) ==
LOC: HO.HMCH 08:21
PROVIDERS: PCP Internal Medicine; Visit Provider Internal Medicine
DX: Z00.00 Encounter for general adult medical examination without abnormal findings (principal); L40.9 Psoriasis, unspecified; K21.9 Gastro-esophageal reflux disease without esophagitis; F41.1 Generalized anxiety disorder; K76.0 Fatty (change of) liver, not elsewhere classified; K42.9 Umbilical hernia without obstruction or gangrene; D21.9 Benign neoplasm of connective and other soft tissue, unspecified

== ENCOUNTER 2025-02-25 08:20 | Outpatient (REF) | payer OTHER, SELFPAY ==
[2025-03-04 00:58] LABS: Lactoferrin, Fecal, Quant. <6.25 mcg/mL (<7.25)
== END 2025-02-25 08:21 | disposition home or self-care (01) ==
LOC: HO.LNP 08:20
PROVIDERS: Internal Medicine Gastroenterology; PCP Internal Medicine; Visit Provider Internal Medicine
DX: Z00.00 Encounter for general adult medical examination without abnormal findings (principal); K51.50 Left sided colitis without complications; L40.9 Psoriasis, unspecified; K21.9 Gastro-esophageal reflux disease without esophagitis; K76.0 Fatty (change of) liver, not elsewhere classified; K42.9 Umbilical hernia without obstruction or gangrene; D21.9 Benign neoplasm of connective and other soft tissue, unspecified
CPT/HCPCS: 83631; 96127